=== PATIENT | male | born 1935 | race Caucasian/White ===

== ENCOUNTER 2020-08-25 02:37 | Inpatient (IN) | payer MEDICARE ==
[2020-08-25 05:01] LABS: #Basophils 0.1 thou/uL (0.0-0.2); #Eosinphils 0.1 thou/uL (0.0-0.7); #Lymphocytes 1.3 thou/uL (1.20-3.40); #Neutrophils 9.5 thou/uL (1.40-6.50); %Basophils 0.6 % (0.0-1.0); %Lymphocytes 10.6 % (21.0-51.0); %Monocytes 8.7 % (0.0-10.0); %Neutrophils 79.2 % (42.0-75.0); Hemoglobin 11.8 g/dL (14.0-18.0); Mean Corpuscular HGB CONC 32.6 g/dL (32.0-36.0); Mean Corpuscular Hemoglobin 30.5 pg (27.0-31.0); Mean Corpuscular Volume 93.7 fL (78.0-98.0); Mean Platelet Volume 7.5 fL (7.4-10.4); Platelet Count 280 thou/uL (130-400); RBC Distribution Width 13.2 % (11.5-14.5); Red Blood Cell (RBC) Count 3.86 mill/uL (4.70-6.10)
[2020-08-25 05:15] LABS: INR-International Normal Ratio 1.1; Prothrombin Time 14.3 sec (12.0-14.7)
[2020-08-25 05:16] LABS: PTT 31.3 sec (22.9-36.1)
[2020-08-25 05:22] LABS: ALT (SGPT) 16 U/L (8-55); AST (SGOT) 11 U/L (5-34); Albumin 3.4 g/dL (3.4-4.8); Alkaline Phosphatase 86 U/L (40-110); Anion Gap 12 mmol/L (10-20); BUN (Urea Nitrogen) 23 mg/dL (8.4-25.7); Bilirubin, Total 0.6 mg/dL (0.2-1.2); Calc. Creatinine Clearance 0 mL/min (70-130); Calcium 8.3 mg/dL (7.8-10.44); Carbon Dioxide 27 mmol/L (23-31); Chloride 104 mmol/L (98-107); Globulin 2.7 g/dL (2.4-3.5); Glucose 282 mg/dL (83-110); Magnesium 1.8 mg/dL (1.6-2.6); Phosphorus 3.2 mg/dL (2.3-4.7); Potassium 3.8 mmol/L (3.5-5.1); Protein, Total 6.1 g/dL (5.8-8.1); Sodium 139 mmol/L (136-145)
[2020-08-25] MEDS ORDERED: Dextrose 5% in Water 1,000 ML IV PRN (05:23)
[2020-08-25] MEDS ORDERED: Dextrose 50% Abboject 50 ML SYRINGE SLOW IVP PRN (05:23)
[2020-08-25] MEDS ORDERED: Ondansetron PF 4 MG/2 ML Vial IVP PRN (05:23)
[2020-08-25] MEDS ORDERED: hydrALAZINE 20 MG/ML VIAL SLOW IVP PRN (05:23)
[2020-08-25] MEDS ORDERED: Morphine 4 MG/ML VIAL SLOW IVP PRN (05:23)
[2020-08-25] MEDS ORDERED: Insulin Regular 300 UNITS/3 ML VIAL SC PRN (05:23)
[2020-08-25] MEDS ORDERED: Cyclobenzaprine 10 MG TAB PO PRN (05:26)
[2020-08-25] MEDS ORDERED: traMADol HCl 50 MG TAB PO PRN ×2 (05:26)
[2020-08-25 05:53] VITALS: BMI 28.1
[2020-08-25] MEDS: Ibuprofen 200 MG TAB PO SCH ×3 (06:29→23:52)
[2020-08-25] MEDS: Acetaminophen 325 MG TAB PO SCH ×4 (06:29→23:52)
--- NOTE | 2020-08-25 06:44 | HP ---
TRAUMA SURGEON: Dr. Mckeon. CONSULTING PHYSICIAN: Dr. Cifuentes. HISTORY OF PRESENT ILLNESS: The patient is an 84-year-old male, who presented to the emergency department in [place] after a mechanical fall where he got caught up in his slipper, subsequently falling. The emergency room physician evaluated the patient and found a right open ankle fracture. Dr. Cifuentes was consulted, who recommended operative intervention. The patient denies hitting his head or anticoagulation use. He takes aspirin 81 mg at home. He lives at home alone and he has caretakers, who help take care of him. He denies nausea, vomiting, chest pain, shortness of breath, or syncope. REVIEW OF SYSTEMS: All additional 10-point review of systems negative except as indicated above. PAST MEDICAL HISTORY: Type 2 diabetes, hypertension, atrial fibrillation, dementia, hyperlipidemia. PAST SURGICAL HISTORY: He had a wound debridement of his left foot ulcer by Dr. Winn several years ago. SOCIAL HISTORY: The patient denies tobacco, drug, and alcohol use. He lives at home alone and have caretakers, who help take care of him daily. He uses a walker to get around. MEDICATIONS: Aspirin. The patient also takes Lasix, but he does not know the rest of his medications. He gets his medications from [facility]. ALLERGIES: CEDAR. PHYSICAL EXAMINATION: VITAL SIGNS: Temperature 98.1, pulse 78, respirations 16, oxygen saturation 98% on room air, blood pressure 160/71. GENERAL: Well-appearing elderly male, sitting up in bed, awake and alert, with no signs of acute distress. PULMONARY: Equal chest rise and fall. Clear breath sounds bilaterally. No signs of acute respiratory distress. CARDIAC: Regular rate, irregular rhythm, with no murmurs, gallops, or rubs. GASTROINTESTINAL: Soft, nontender, nondistended. PELVIS: Stable to palpation. Nontender. EXTREMITIES: 2+ pulses in all extremities. Gross motor is intact. The patient with decreased sensation in bilateral feet from diabetes. This is his baseline. He has an ulcer to the heel of the left foot. His right lower extremity is with a splint that is in place. There is a little bit of oozing on the posterior aspect of the splint. NEUROLOGIC: GCS is 15. Pupils equal, round, and reactive to light bilaterally. LABORATORY FINDINGS: White count 12.0, hemoglobin 11.8, hematocrit 36.2, platelets 280. INR 1.1, PTT 31.3. Sodium 139, potassium 3.8, chloride 104, bicarb 27, BUN 23, creatinine 1.21, glucose 282, phosphorus 3.2, magnesium 1.8, total bilirubin 0.6, AST 18, ALT 16, alkaline phosphatase 86. DIAGNOSTIC FINDINGS: Chest x-ray is pending. Official report of the x-ray of the right ankle is pending, however, on my evaluation, the patient has a right distal tib-fib fracture. ASSESSMENT: 1. Status post mechanical fall from standing. 2. Right open ankle fracture. 3. History of diabetes, hypertension, atrial fibrillation, dementia, and hyperlipidemia. PLAN: The patient will be admitted to the Trauma Service. Dr. Cifuentes has been consulted, who evaluated the patient and took him to the OR, at the outside hospital, received tetanus and antibiotics. We will complete a chest x-ray and the EKG and follow that up later this morning for preoperative evaluation, and we will restart his home medications as clinically indicated. Postoperatively, the patient worked with Physical and Occupational Therapy and likely need placement in acute rehab facility. This patient was discussed with Dr. Mckeon before this dictation. Job ID: [id number] [facility]
--- NOTE | 2020-08-25 07:37 | RAD ---
Portable frontal chest radiograph: 08/25/2020 COMPARISON: 05/03/2013 HISTORY: Preoperative evaluation FINDINGS: No pneumothorax or pleural fluid. No focal consolidation or alveolar edema. Mild increased linear density in the perihilar regions. Pression: No focal consolidation or alveolar edema.
[2020-08-25] MEDS: Famotidine/PF 20 mg/2ml Vial SLOW IVP SCH ×2 (08:18→21:20)
[2020-08-25] MEDS: Gabapentin 100 MG CAP PO SCH ×3 (08:55→22:21)
[2020-08-25] MEDS: Polyethylene Glycol 3350 17 GM Packet PO SCH (08:56)
[2020-08-25] MEDS: Senokot S 8.6-50 MG TAB PO SCH ×2 (08:56→22:21)
[2020-08-25] MEDS ORDERED: FLU VACC QS2020-21(65YR UP)/PF 240 MCG/0.7 ML SYRINGE IM ONE (09:00)
--- NOTE | 2020-08-25 09:06 | CON ---
DATE OF CONSULTATION: 08/25/2020 CHIEF COMPLAINT: Right ankle pain. HISTORY OF PRESENT ILLNESS: Mr. Browning is an 84-year-old male, who fell yesterday. He tripped over a slipper falling in his bathroom. He fractured his ankle. He has a laceration of the ankle as well. He has been seen initially at [facility] and then transferred for further care. The patient was admitted last night. He denied loss of consciousness. He normally does use a cane for mobility, sometimes a walker. PAST MEDICAL HISTORY: Diabetes, hypertension, atrial fibrillation, dementia, and hyperlipidemia. PAST SURGICAL HISTORY: Previous left foot ulcer debridement. Otherwise negative. SOCIAL HISTORY: The patient denies tobacco, alcohol, or drug use. The patient reports he has caretakers and family who help him at home. ALLERGIES: TO CEDAR. IMAGES: X-rays of the ankle demonstrate osteoporotic-looking bone. There is a comminuted fracture of the fibula as well as a displaced medial malleolar fracture. The ankle is subluxated laterally. LABORATORY DATA: Hemoglobin is 11.8, hematocrit is 36.2. Coagulation studies are within normal limits as well as electrolytes. His glucose is elevated at 282. PHYSICAL EXAMINATION: VITAL SIGNS: Temperature is 98.1, pulse is 78, respiratory rate of 16, oxygen saturation is 98%, blood pressure is 160/71. GENERAL: He is alert and oriented, lying supine, in no apparent distress. Talkative. HEENT: Normocephalic and atraumatic. RESPIRATORY: Breathing comfortably. ABDOMEN: Soft, nontender, and nondistended. MUSCULOSKELETAL: The patient's right lower extremity has a splint. He is able to flex and extend the toes. He has poor sensation in the toes secondary to neuropathy. His foot is warm and well perfused. There is some serosanguineous drainage on the bandage. The patient has a 4 to 5 cm laceration of the medial ankle. IMPRESSION: Right open bimalleolar ankle fracture in an elderly male. PLAN: At this point, I think the patient is going to need to go to the operating room. We will need to irrigate and debride his open fracture and wounds with wound closure. I am worried about performing an open reduction and internal fixation procedure given his skin damage and diabetes. I think he will be better off with a percutaneous Steinmann pin stabilizing the ankle and allowing healing in that manner. We will proceed likely with this plan today unless the skin looks very good at the time of surgery. He will need 6 weeks at least with nonweightbearing. We will proceed with surgical intervention. He is aware of risk and wants to proceed. Risks do include infection, wound complication, nerve or vascular injury, nonunion, and others. Job ID: [id number]
[2020-08-25] MEDS ORDERED: PHENYLEPHRINE-NS 100 MCG/ML 10 ML SYRINGE ONE (09:47)
[2020-08-25] MEDS ORDERED: PROPOFOL 200 MG/20 ML VIAL ONE (09:47)
[2020-08-25] MEDS ORDERED: Lidocaine 1% PF 5 ML VIAL ONE (09:47)
[2020-08-25] MEDS ORDERED: Ondansetron PF 4 MG/2 ML Vial ONE (09:47)
[2020-08-25] MEDS ORDERED: Dexamethasone 20 MG/5 ML VIAL ONE (09:47)
[2020-08-25] MEDS: ceFAZolin 1 GM/D5W 1 GM in Premix Bag 1 BAG IVPB SCH ×2 (09:55→17:46)
[2020-08-25] MEDS: Insulin Regular 300 UNITS/3 ML VIAL SC PRN ×2 (11:08→16:51)
[2020-08-25 12:50] LABS: SARS-CoV-2 PCR by NAA Not Detected (NotDetected)
--- NOTE | 2020-08-25 13:13 | PDOC.GSPN ---
Surgery Progress Note: Subj - Subjective Patient reports: pain well controlled Narrative: Pt is a 84 yoM admitted this morning 08/25/20 for a mechanical fall at home that resulted in a right open ankle fracture and scheduled for OR today. Pt has 18 hours of home care. Pt reports no pain and has no complaints. Surgery Progress Note: Obj - Vital signs Vital signs: Vital Signs - Most Recent Temp Pulse Resp BP Pulse Ox 98.4 F 94 14 150/68 H 89 L 08/25/20 11:40 08/25/20 11:40 08/25/20 11:40 08/25/20 11:40 08/25/20 11:40 - Physical Exam General: no distress, well developed, well nourished, no pain Cardiovascular: regular rate and rhythm, no murmur Respiratory: clear to auscultation, normal expansion, normal respiratory effort, breath sounds present Abdomen: soft, non tender, nondistended, positive bowel sounds Additional exam: GCS=15 Surgery Progress Note: Results - Labs Result Diagrams: 08/26/20 05:40 08/26/20 05:40 Lab results: Laboratory Results - last 12 hr 08/25/20 08/25/20 08/25/20 04:53 04:53 04:53 WBC 12.0 H RBC 3.86 L Hgb 11.8 L Hct 36.2 L MCV 93.7 MCH 30.5 MCHC 32.6 RDW 13.2 Plt Count 280 MPV 7.5 Neutrophils % 79.2 H Lymphocytes % 10.6 L Monocytes % 8.7 Eosinophils % 1.0 Basophils % 0.6 Neutrophils # 9.5 H Lymphocytes # 1.3 Monocytes # 1.0 H Eosinophils # 0.1 Basophils # 0.1 PT 14.3 INR 1.1 APTT 31.3 Sodium 139 Potassium 3.8 Chloride 104 Carbon Dioxide 27 Anion Gap 12 BUN 23 Creatinine 1.21 Estimated GFR (MDRD) 57 Glucose 282 H POC Glucose Calcium 8.3 Phosphorus 3.2 Magnesium 1.8 Total Bilirubin 0.6 AST 11 ALT 16 Alkaline Phosphatase 86 Serum Total Protein 6.1 Albumin 3.4 Globulin 2.7 Albumin/Globulin Ratio 1.3 SARS CoV-2 Rapid Source SARS-CoV-2 RNA (VANESSA) 08/25/20 08/25/20 06:15 10:36 WBC RBC Hgb Hct MCV MCH MCHC RDW Plt Count MPV Neutrophils % Lymphocytes % Monocytes % Eosinophils % Basophils % Neutrophils # Lymphocytes # Monocytes # Eosinophils # Basophils # PT INR APTT Sodium Potassium Chloride Carbon Dioxide Anion Gap BUN Creatinine Estimated GFR (MDRD) Glucose POC Glucose 250 H Calcium Phosphorus Magnesium Total Bilirubin AST ALT Alkaline Phosphatase Serum Total Protein Albumin Globulin Albumin/Globulin Ratio SARS CoV-2 Rapid Source Nasopharyngeal Swab SARS-CoV-2 RNA (VANESSA) Not Detected - EKG Data Rate: normal Surgery Progress Note: A/P - Plan Plan: ASSESSMENT: Pt is an 84 yoM admitted this morning 08/25/20 for mechanical fall that resulted in a open right ankle fracture, scheduled for surgery today. 1. Right open ankle fracture 2. status post mechanical fall 3. unstable chronic ankle ulcer PLAN: Surgery today for open right ankle fracture. Continue bowel regiment. Continue Pain management. Plan PT/OT after surgery. Continue current medical management. Consult wound management for chronic ankle ulcer. Addendum - Attending - Attending Attestation Date/Time: 08/26/20 4021 I personally evaluated the patient and discussed the management with Dr. [] I agree with the History, Examination, Assessment and Plan documented above with any addition or exceptions noted below.
[2020-08-25] MEDS ORDERED: CEFAZOLIN 1 GM VIAL SLOW IVP SCH (14:00)
[2020-08-25] MEDS ORDERED: Fentanyl 100 MCG/2 ML VIAL ONE (14:03)
--- NOTE | 2020-08-25 18:38 | OP ---
DATE OF PROCEDURE: 08/25/2020 PROCEDURE PERFORMED: Right ankle fracture irrigation and debridement for open wound and percutaneous pin fixation of right ankle fracture. PREOPERATIVE DIAGNOSIS: Open right trimalleolar ankle fracture. POSTOPERATIVE DIAGNOSIS: Open right trimalleolar ankle fracture. COMPLICATIONS: None. ESTIMATED BLOOD LOSS: Minimal. FIST WASHER ENGINEER: Dennis Haro PA-C. IMPLANTS: A single large Steinmann pin was utilized. INDICATIONS: Mr. Browning is an 84-year-old male, who has fallen at home. He fractured his right ankle. He has been indicated for irrigation of his wounds with wound closure. He has also been indicated for percutaneous Steinmann pin fixation of the ankle. His ankle is not amenable to fixation given his poor skin, diabetes, and risk of infection. He is aware of the risks and wants to proceed. DESCRIPTION OF PROCEDURE: Mr. Browning was identified in the preoperative holding area. His correct extremity was marked. He was carried to the operating room. He was positioned supine. General anesthesia was induced. A multidisciplinary time-out was performed. The right lower extremity was prepped and draped in sterile fashion. We began the procedure with extending the patient's traumatic medial wound. He had a 4-cm laceration, which went down to the bony level. We thoroughly irrigated with copious lavage. We debrided the deep tissues sharply. We exposed the underlying bone. We then thoroughly irrigated with copious lavage. A total of 3 L was utilized with a pulse lavage system. At this point, we debrided the skin edges. We then closed the skin with 3-0 nylon suture in interrupted fashion. Next, we used intraoperative x-ray to assess the fracture. We pulled traction and reduced the ankle fracture anatomically. We then made a small incision at the heel. Next, we inserted a Steinmann pin under intraoperative fluoroscopic guidance. This was seated through the talus into the distal tibia. Again, we checked x-rays confirmed we had reduction and stabilize the ankle. At this point, we cut the Steinmann pin and impacted this slightly further. Next, we thoroughly irrigated all wounds and closed the small heel wound. We applied a sterile dressing and a splint. The patient was taken to the recovery room in good condition. Job ID: [id number]
--- NOTE | 2020-08-25 21:32 | RAD ---
RADIOGRAPH RIGHT ANKLE TWO VIEWS: Date: 08-25-2020 Time: 3:13 p.m. History: 84-year-old male with acute, traumatic, right ankle fracture. Comparison: 08-25-2020 at 2:11 a.m. FINDINGS: Small field of view fluoroscopic spot images obtained with c-arm in the OR. The subluxation and asymmetry of the ankle mortise has been reduced, and alignment is now nearly tiffanie omical. This has been fixated with a long-vertical metallic screw from the plantar aspect of the ante rior calcaneus, through the talus, through the tibial profund, into the junction between the proximal and middle thirds of the tibial diaphysis. The medial malleolar fracture has been reduced and is yari rly anatomical. The comminuted and displaced distal fibular metadiaphyseal fracture has also been red uced, with improved alignment. IMPRESSION: 1. Immediately status post arthrodesis of the ankle with a single long screw. 2. Interval improvement of alignment of the comminuted fractures of the distal fibula and medial malleus. POS: JIN
[2020-08-25] MEDS ORDERED: CEFAZOLIN 2 GM in Premix Bag 1 BAG IVPB SCH (22:00)
[2020-08-26] MEDS: Acetaminophen 325 MG TAB PO SCH ×4 (00:31→17:08)
[2020-08-26] MEDS: ceFAZolin 1 GM/D5W 1 GM in Premix Bag 1 BAG IVPB SCH ×2 (02:51→09:04)
[2020-08-26] MEDS: Insulin Regular 300 UNITS/3 ML VIAL SC PRN (05:31)
[2020-08-26] MEDS: Ibuprofen 200 MG TAB PO SCH (05:31)
[2020-08-26 06:02] LABS: #Lymphocytes 1.4 thou/uL (1.20-3.40); #Monocytes 1.3 thou/uL (0.11-0.59); #Neutrophils 9.4 thou/uL (1.40-6.50); %Basophils 0.1 % (0.0-1.0); %Eosinophils 0.3 % (0.0-10.0); %Lymphocytes 11.6 % (21.0-51.0); %Monocytes 10.7 % (0.0-10.0); %Neutrophils 77.4 % (42.0-75.0); Hemoglobin 10.8 g/dL (14.0-18.0); Mean Corpuscular HGB CONC 32.2 g/dL (32.0-36.0); Mean Corpuscular Hemoglobin 30.8 pg (27.0-31.0); Mean Corpuscular Volume 95.7 fL (78.0-98.0); Mean Platelet Volume 7.7 fL (7.4-10.4); Platelet Count 256 thou/uL (130-400); RBC Distribution Width 13.1 % (11.5-14.5); Red Blood Cell (RBC) Count 3.52 mill/uL (4.70-6.10); White Blood Cell (WBC) Count 12.1 thou/uL (4.8-10.8)
[2020-08-26 06:30] LABS: Anion Gap 12 mmol/L (10-20); BUN (Urea Nitrogen) 26 mg/dL (8.4-25.7); Calc. Creatinine Clearance 59 mL/min (70-130); Calcium 8.2 mg/dL (7.8-10.44); Carbon Dioxide 28 mmol/L (23-31); Chloride 103 mmol/L (98-107); Glucose 312 mg/dL (83-110); Magnesium 1.9 mg/dL (1.6-2.6); Phosphorus 2.8 mg/dL (2.3-4.7); Potassium 4.2 mmol/L (3.5-5.1); Sodium 139 mmol/L (136-145)
[2020-08-26] MEDS ORDERED: INSULIN ASPART 100 UNIT/ML SC SCH (08:00)
[2020-08-26] MEDS: Senokot S 8.6-50 MG TAB PO SCH ×2 (08:57→21:06)
[2020-08-26] MEDS: Gabapentin 100 MG CAP PO SCH ×3 (08:57→20:32)
[2020-08-26] MEDS: hydrALAZINE 25 MG TAB PO SCH ×2 (08:58→20:34)
[2020-08-26] MEDS: Polyethylene Glycol 3350 17 GM Packet PO SCH (09:01)
[2020-08-26] MEDS: Enoxaparin Sodium 30 MG/0.3 ML SYRINGE SC SCH ×2 (09:05→20:33)
[2020-08-26] MEDS: Propafenone HCl 150 MG TAB PO SCH ×3 (09:18→20:32)
[2020-08-26] MEDS ORDERED: HumaLOG 300 UNITS/3 ML VIAL SC PRN (12:00)
[2020-08-26] MEDS: HumaLOG 300 UNITS/3 ML VIAL SC SCH ×2 (12:04→17:08)
[2020-08-26] MEDS: HumaLOG 300 UNITS/3 ML VIAL SC PRN ×2 (12:05→17:09)
--- NOTE | 2020-08-26 15:21 | PDOC.GSPN ---
Surgery Progress Note: Subj - Subjective Patient reports: no new complaints, feels better, pain well controlled, no bowel movement, tolerating a regular diet Narrative: Pt is an 84 yoM admitted on 08/25/20 for mechanical fall that resulted in an open right ankle fracture. Pt is post op day 1 of right ankle fracture repair. Pt reports he has no pain and has had a good appetite. Pt reports no bowel movement. Pt has no complaints. Awaiting approval to [facility]. Surgery Progress Note: Obj - Vital signs Vital signs: Vital Signs - Most Recent Temp Pulse Resp BP Pulse Ox 97.6 F 78 17 117/62 94 L 08/26/20 11:27 08/26/20 11:27 08/26/20 11:27 08/26/20 11:27 08/26/20 11:27 - Physical Exam General: no distress, well developed, well nourished Cardiovascular: regular rate and rhythm, no murmur Respiratory: clear to auscultation, normal expansion, normal respiratory effort, breath sounds present Abdomen: soft, non tender, nondistended, positive bowel sounds Additional exam: GCS=15 Surgery Progress Note: Results - Labs Result Diagrams: 08/27/20 06:13 08/27/20 06:13 Lab results: Laboratory Results - last 12 hr 08/26/20 08/26/20 08/26/20 05:23 05:40 05:40 WBC 12.1 H RBC 3.52 L Hgb 10.8 L Hct 33.7 L MCV 95.7 MCH 30.8 MCHC 32.2 RDW 13.1 Plt Count 256 MPV 7.7 Neutrophils % 77.4 H Lymphocytes % 11.6 L Monocytes % 10.7 H Eosinophils % 0.3 Basophils % 0.1 Neutrophils # 9.4 H Lymphocytes # 1.4 Monocytes # 1.3 H Eosinophils # 0.0 Basophils # 0.0 Sodium 139 Potassium 4.2 Chloride 103 Carbon Dioxide 28 Anion Gap 12 BUN 26 H Creatinine 1.35 H Estimated GFR (MDRD) 50 Glucose 312 H POC Glucose 280 H Calcium 8.2 Phosphorus 2.8 Magnesium 1.9 08/26/20 08/26/20 07:27 10:54 WBC RBC Hgb Hct MCV MCH MCHC RDW Plt Count MPV Neutrophils % Lymphocytes % Monocytes % Eosinophils % Basophils % Neutrophils # Lymphocytes # Monocytes # Eosinophils # Basophils # Sodium Potassium Chloride Carbon Dioxide Anion Gap BUN Creatinine Estimated GFR (MDRD) Glucose POC Glucose 235 H 267 H Calcium Phosphorus Magnesium - EKG Data Rate: normal Surgery Progress Note: A/P - Plan Plan: ASSESSMENT: Pt is an 84 yoM admitted on 08/25/20 for mechanical fall. Pt is post op day 1 of right ankle fracture repair. 1. post op day 1 right ankle fracture repair 2. post mechanical fall 3. chronic ankle ulcer PLAN: Continue pain regiment. Continue bowel regiment. Encouraged pt to use incentive spirometer. Continue PT/OT. Continue current medical management. Awaiting [facility] approval. Addendum - Attending - Attending Attestation Date/Time: 08/27/20 8269 I personally evaluated the patient and discussed the management with Dr. [] I agree with the History, Examination, Assessment and Plan documented above with any addition or exceptions noted below.
[2020-08-26] MEDS: Simvastatin 10 MG TAB PO SCH (20:32)
[2020-08-26] MEDS: Insulin Glargine 10 UNITS in Pre-Filled Syringe 1 EACH SC SCH (20:33)
[2020-08-26] MEDS ORDERED: INSULIN DETEMIR SC SCH (21:00)
[2020-08-27] MEDS: Acetaminophen 325 MG TAB PO SCH ×4 (00:35→16:30)
[2020-08-27] MEDS: HumaLOG 300 UNITS/3 ML VIAL SC PRN ×2 (05:55→11:54)
[2020-08-27 06:32] LABS: Hemoglobin 10.4 g/dL (14.0-18.0); Mean Corpuscular HGB CONC 32.5 g/dL (32.0-36.0); Mean Corpuscular Hemoglobin 31.2 pg (27.0-31.0); Mean Corpuscular Volume 96.2 fL (78.0-98.0); Mean Platelet Volume 7.6 fL (7.4-10.4); Platelet Count 279 thou/uL (130-400); RBC Distribution Width 13.2 % (11.5-14.5); Red Blood Cell (RBC) Count 3.34 mill/uL (4.70-6.10); White Blood Cell (WBC) Count 10.3 thou/uL (4.8-10.8)
[2020-08-27 06:53] LABS: Anion Gap 11 mmol/L (10-20); BUN (Urea Nitrogen) 27 mg/dL (8.4-25.7); Calc. Creatinine Clearance 71 mL/min (70-130); Carbon Dioxide 27 mmol/L (23-31); Chloride 102 mmol/L (98-107); Glucose 254 mg/dL (83-110); Magnesium 1.9 mg/dL (1.6-2.6); Phosphorus 2.4 mg/dL (2.3-4.7); Potassium 4.1 mmol/L (3.5-5.1); Sodium 136 mmol/L (136-145)
[2020-08-27] MEDS ORDERED: Magnesium 2 GM/50 ML 2 GM in Premix Bag 1 BAG IVPB SCH (07:30)
[2020-08-27] MEDS ORDERED: Potassium Chloride 10 MEQ TAB PO SCH (09:30)
[2020-08-27] MEDS: Propafenone HCl 150 MG TAB PO SCH ×3 (10:18→20:36)
[2020-08-27] MEDS: Polyethylene Glycol 3350 17 GM Packet PO SCH (10:19)
[2020-08-27] MEDS: Senokot S 8.6-50 MG TAB PO SCH ×2 (10:19→20:36)
[2020-08-27] MEDS: Enoxaparin Sodium 30 MG/0.3 ML SYRINGE SC SCH ×2 (10:20→20:36)
[2020-08-27] MEDS: hydrALAZINE 25 MG TAB PO SCH ×2 (10:20→20:36)
[2020-08-27] MEDS: Gabapentin 100 MG CAP PO SCH ×3 (10:20→20:37)
[2020-08-27] MEDS: HumaLOG 300 UNITS/3 ML VIAL SC SCH ×3 (10:21→17:26)
[2020-08-27] MEDS: Insulin Glargine 10 UNITS in Pre-Filled Syringe 1 EACH SC SCH ×2 (10:22→20:35)
--- NOTE | 2020-08-27 13:13 | PDOC.GSPN ---
Surgery Progress Note: Subj - Subjective Patient reports: no new complaints, feels better, pain well controlled, tolerati ng a regular diet Narrative: Pt is an 84 yoM admitted on 08/25/20 for a mechanical fall. Post op day 2 from a right ankle fracture repair. Pt feels well, has no pain and has no complaints. Pt was accepted to [facility] pending bed availability. Surgery Progress Note: Obj - Vital signs Vital signs: Vital Signs - Most Recent Temp Pulse Resp BP Pulse Ox 98.8 F 90 18 144/65 H 92 L 08/27/20 11:12 08/27/20 11:12 08/27/20 11:12 08/27/20 11:12 08/27/20 11:12 - Physical Exam General: no distress, well developed, well nourished Cardiovascular: regular rate and rhythm, no murmur Respiratory: clear to auscultation, normal expansion, normal respiratory effort, breath sounds present Abdomen: soft, non tender, nondistended, positive bowel sounds Psychiatric: memory intact, oriented to time, oriented to person, oriented to place, speech is normal Additional exam: GCS=15 Surgery Progress Note: Results - Labs Result Diagrams: 08/27/20 06:13 08/27/20 06:13 Lab results: Laboratory Results - last 12 hr 08/26/20 08/27/20 08/27/20 20:31 06:13 06:13 WBC 10.3 RBC 3.34 L Hgb 10.4 L Hct 32.1 L MCV 96.2 MCH 31.2 H MCHC 32.5 RDW 13.2 Plt Count 279 MPV 7.6 Sodium 136 Potassium 4.1 Chloride 102 Carbon Dioxide 27 Anion Gap 11 BUN 27 H Creatinine 1.12 Estimated GFR (MDRD) 62 Glucose 254 H POC Glucose 236 H Calcium 8.0 Phosphorus 2.4 Magnesium 1.9 08/27/20 11:06 WBC RBC Hgb Hct MCV MCH MCHC RDW Plt Count MPV Sodium Potassium Chloride Carbon Dioxide Anion Gap BUN Creatinine Estimated GFR (MDRD) Glucose POC Glucose 304 H Calcium Phosphorus Magnesium - EKG Data Rate: normal Surgery Progress Note: A/P - Plan Plan: ASSESSMENT: Pt is an 84 yoM admitted on 08/25/20 for a mechanical fall. Post op day 2 from a right ankle fracture repair. 1. post op day 2 right ankle fracture repair 2. post mechanical fall 3. DM-hyperglycemia, uncontrolled 4. chronic ankle ulcer PLAN: Increase basal insulin to 10 units BID. Start home medication 10 mEq KCl. Continue pain management. Continue Bowel regiment. Continue PT/OT. Continue current medical management. Encourage Incentive Spirometer use. Pt approved to [facility], waiting on bed availability. Addendum - Attending - Attending Attestation Date/Time: 08/27/20 0804 I personally evaluated the patient and discussed the management with Dr. [] I agree with the History, Examination, Assessment and Plan documented above with any addition or exceptions noted below.
[2020-08-27] MEDS: Simvastatin 10 MG TAB PO SCH (20:36)
[2020-08-28] MEDS: Acetaminophen 325 MG TAB PO SCH ×4 (00:12→17:35)
--- NOTE | 2020-08-28 04:16 | PDOC.GSPN ---
Surgery Progress Note: Subj - Subjective Patient reports: no new complaints, feels better, positive flatus, pain well con trolled, tolerating a regular diet Narrative: Pt is an 84 yoM admitted on 08/25/20 for a mechanical fall. Post op day 3 from a right ankle fracture repair. Pt reports no pain. Pt reports he has a good appetite and has slept well. Pt reports no bowel movements but does report he feels the sensation to have a bowel movement. Pt accepted to [facility] pending bed availability tomorrow. Surgery Progress Note: Obj - Vital signs Vital signs: Vital Signs - Most Recent Temp Pulse Resp BP Pulse Ox 98.2 F 87 18 151/68 H 93 L 08/28/20 03:10 08/28/20 03:10 08/28/20 03:10 08/28/20 03:10 08/28/20 03:10 - Physical Exam General: no distress, well developed, well nourished Cardiovascular: regular rate and rhythm, no murmur Respiratory: clear to auscultation, normal expansion, normal respiratory effort, breath sounds present Abdomen: soft, non tender, nondistended, positive bowel sounds Psychiatric: memory intact, oriented to time, oriented to person, oriented to place, speech is normal Additional exam: GCS=15 Surgery Progress Note: Results - Labs Result Diagrams: 08/27/20 06:13 08/27/20 06:13 Lab results: Laboratory Results - last 12 hr 08/27/20 08/27/20 16:29 20:33 POC Glucose 125 H 136 H - EKG Data Rate: normal Surgery Progress Note: A/P - Plan Plan: ASSESSMENT: Pt is an 84 yoM admitted on 08/25/20 for a mechanical fall. Post op day 3 for a right ankle fracture repair 1. post op day 3 for a right ankle fracture repair 2. post mechanical fall 3. chronic ankle ulcer 4. HTN, uncontrolled PLAN: Start lisinopril 5 mg to better manage the pt HTN. Continue pain management. Continue PT/OT. Encourage Incentive spirometer use. Continue current medical management. Pt approved to [facility] pending bed availability. Addendum - Attending - Attending Attestation Date/Time: 08/29/20 1050 I personally evaluated the patient and discussed the management with . [] I agree with the History, Examination, Assessment and Plan documented above with any addition or exceptions noted below.
[2020-08-28] MEDS: HumaLOG 300 UNITS/3 ML VIAL SC PRN ×2 (05:14→16:22)
[2020-08-28] MEDS: Enoxaparin Sodium 30 MG/0.3 ML SYRINGE SC SCH ×2 (08:39→20:54)
[2020-08-28] MEDS: Gabapentin 100 MG CAP PO SCH ×3 (08:40→20:54)
[2020-08-28] MEDS: Polyethylene Glycol 3350 17 GM Packet PO SCH (08:40)
[2020-08-28] MEDS: Senokot S 8.6-50 MG TAB PO SCH ×2 (08:40→20:55)
[2020-08-28] MEDS: Propafenone HCl 150 MG TAB PO SCH ×3 (08:41→20:54)
[2020-08-28] MEDS: hydrALAZINE 25 MG TAB PO SCH ×2 (08:41→20:54)
[2020-08-28] MEDS: Insulin Glargine 10 UNITS in Pre-Filled Syringe 1 EACH SC SCH ×2 (08:41→20:53)
[2020-08-28] MEDS: HumaLOG 300 UNITS/3 ML VIAL SC SCH ×3 (08:42→17:36)
[2020-08-28] MEDS ORDERED: Potassium Chloride 10 MEQ TAB PO SCH (09:00)
[2020-08-28] MEDS ORDERED: Furosemide 40 MG TAB PO SCH (09:00)
--- NOTE | 2020-08-28 16:30 | DIS ---
DATE OF ADMISSION: 08/25/2020 DATE OF DISCHARGE: 08/28/2020 DISCHARGE ATTENDING: Dr. Alves. CONSULTS: Orthopedic Surgery, Dr. Cifuentes. PROCEDURES: On 08/25/2020, open reduction and internal fixation and irrigation and debridement of wound, right ankle for a right open ankle fracture. PRIMARY DIAGNOSES: Mechanical fall, right open ankle fracture, hyperglycemia. SECONDARY DIAGNOSES: Type 2 diabetes, hypertension, atrial fibrillation, dementia, and hyperlipidemia. DISCHARGE MEDICATIONS: 1. Acetaminophen 650 mg p.o. q.6 hours. 2. Flexeril 5 mg p.o. three times a day. 3. Lovenox 30 mg subcu b.i.d. for 2 weeks, VTE prophylaxis. 4. Lasix 40 mg p.o. q.a.m. 5. Gabapentin 100 mg p.o. three times a day. 6. Humalog 8 units subcu three times a day with meals. 7. Hydralazine 25 mg p.o. b.i.d. 8. Lisinopril 5 mg p.o. at bedtime. 9. MiraLAX for constipation. 10. Potassium 10 mEq p.o. daily. 11. Propafenone 150 mg p.o. three times a day. 12. Senokot-S two tabs p.o. b.i.d. 13. Zocor 10 mg p.o. at bedtime. 14. Tramadol 50 mg p.o. q.6 hours one to two tabs p.r.n. pain. 15. Lantus 10 units subcu at bedtime. 16. Lantus 10 units subcu q.a.m. 17. Aspirin 81 mg p.o. daily. 18. Combigan eyedrops. 19. Latanoprost eyedrops each eye one drop at bedtime. No discontinued medications. HISTORY OF PRESENT ILLNESS AND HOSPITAL COURSE: This is an 84-year-old male, who presented to the emergency room in [place] after a mechanical fall. He was evaluated and found to have an open right ankle fracture. The patient was sent to [facility] for Orthopedic [facility]. The patient denied hitting his head or losing consciousness. The patient denied being on any anticoagulation. The patient did report taking aspirin 81 mg daily. The patient is from home and has caretakers who take care of him. The patient denied feeling weak, dizzy, short of breath, or chest pain prior to tripping and falling. The patient's pain was controlled pre and postop. The patient did have some elevated blood sugars and adjustments were made to insulin. The patient was placed on a bowel regimen. The patient also had some hypertension, and lisinopril was added to his blood pressure regimen. The patient tolerated a diabetic diet and supplements with Glucerna and Reddy. On the day of discharge, the patient was examined by Dr. Alves. His exam was unremarkable including cardiopulmonary and GI exam. The patient's vital signs were stable and he was deemed stable for discharge to inpatient rehab, [facility] for continued physical and occupational therapy. DISPOSITION: Stable. DISCHARGE INSTRUCTIONS: 1. Location: [facility]. 2. Diet: Diabetic diet, supplement with Reddy b.i.d. and Glucerna three times a day. 3. Activity: Orthopedic limitations, nonweightbearing right lower extremity. 4. Followup: Follow up with primary care physician for diabetes and hypertension. 5. Follow up with Orthopedic Surgery in 14 days. No need to follow up with Trauma Services. 50% of the 30 minutes were spent educating the patient on followup appointments and medications. Job ID: [id number]
[2020-08-28 20:43] VITALS: BP 122/64; TEMP 98.5
[2020-08-28] MEDS: Simvastatin 10 MG TAB PO SCH (20:55)
[2020-08-28] MEDS ORDERED: Lisinopril 5 MG TAB PO SCH (21:00)
== END 2020-08-28 21:15 | DRG 494 ==
LOC: SURG B 02:37 → OBSVTOIN 05:23
PROVIDERS: ADMIT Surgery; ATTEND Surgery
PROC: 0QH Lower Bones, Insertion (ICD-10-PCS; principal; 2020-08-25)
DX: S82.851B Displaced trimalleolar fracture of right lower leg, initial encounter for open fracture type I or II (principal); Z23 Encounter for immunization; Z20.822 Contact with and (suspected) exposure to COVID-19; W01.0XXA Fall on same level from slipping, tripping and stumbling without subsequent striking against object, initial encounter; I10 Essential (primary) hypertension; I48.91 Unspecified atrial fibrillation; F03.90 Unspecified dementia, unspecified severity, without behavioral disturbance, psychotic disturbance, mood disturbance, and anxiety; E11.65 Type 2 diabetes mellitus with hyperglycemia; E78.5 Hyperlipidemia, unspecified; Z91.048 Other nonmedicinal substance allergy status; Z79.82 Long term (current) use of aspirin; Z79.4 Long term (current) use of insulin; Z79.899 Other long term (current) drug therapy; S82.451A Displaced comminuted fracture of shaft of right fibula, initial encounter for closed fracture
CPT/HCPCS: 29515; 36415; 36416; 71045; 76000; 80048; 80053; 83735; 84100; 85025; 85027; 85610; 85730; 87635; 90471; 90715; 90732; 93005; 93010; 96365; C1713; G0009; J0690; J1100; J1650; J1815; J2270; J2405; J2704; J3010; J3475; S0028; U0003; U0005

== ENCOUNTER 2020-08-31 20:48 | Emergency (ER) | payer MEDICARE | END 2020-09-01 00:01 | LOC: ERS 20:48 | DX: R33.9 Retention of urine, unspecified (principal); E11.9 Type 2 diabetes mellitus without complications; E78.5 Hyperlipidemia, unspecified; I10 Essential (primary) hypertension | CPT/HCPCS: 51702 ==

== ENCOUNTER 2020-09-15 12:33 | Emergency (ER) | payer MEDICARE ==
[2020-09-15 14:13] LABS: #Eosinphils 0.1 thou/uL (0.0-0.7); #Lymphocytes 1.8 thou/uL (1.20-3.40); #Monocytes 0.8 thou/uL (0.11-0.59); #Neutrophils 8.7 thou/uL (1.40-6.50); %Basophils 0.2 % (0.0-1.0); %Eosinophils 0.6 % (0.0-10.0); %Lymphocytes 15.5 % (21.0-51.0); %Monocytes 7.1 % (0.0-10.0); %Neutrophils 76.6 % (42.0-75.0); Hemoglobin 11.9 g/dL (14.0-18.0); Mean Corpuscular Hemoglobin 31.5 pg (27.0-31.0); Mean Corpuscular Volume 95.6 fL (78.0-98.0); Mean Platelet Volume 7.1 fL (7.4-10.4); Platelet Count 356 thou/uL (130-400); RBC Distribution Width 13.3 % (11.5-14.5); Red Blood Cell (RBC) Count 3.76 mill/uL (4.70-6.10); White Blood Cell (WBC) Count 11.3 thou/uL (4.8-10.8)
[2020-09-15 14:33] LABS: ALT (SGPT) 15 U/L (8-55); AST (SGOT) 13 U/L (5-34); Albumin 3.4 g/dL (3.4-4.8); Alkaline Phosphatase 120 U/L (40-110); Anion Gap 14 mmol/L (10-20); BUN (Urea Nitrogen) 22 mg/dL (8.4-25.7); Bilirubin, Total 0.8 mg/dL (0.2-1.2); Calc. Creatinine Clearance 0 mL/min (70-130); Calcium 8.3 mg/dL (7.8-10.44); Carbon Dioxide 20 mmol/L (23-31); Chloride 104 mmol/L (98-107); Globulin 3.3 g/dL (2.4-3.5); Glucose 181 mg/dL (83-110); Potassium 4.3 mmol/L (3.5-5.1); Protein, Total 6.7 g/dL (5.8-8.1); Sodium 134 mmol/L (136-145)
[2020-09-15 15:08] LABS: Bacteria/HPF None Seen HPF (None Seen); Bilirubin Negative (Negative); Blood, Urine Trace (Negative); Clarity Turbid (Clear); Glucose, Urine (Dipstick) Normal (Negative); Ketone, Urine Negative (Negative); Leukocyte 25 Leu/uL (Negative); Nitrite Negative (Negative); Protein, Urine (Dipstick) 20 mg/dL (Neg-Trace); Specific Gravity, Urine 1.021 (1.002-1.036); Squamous Epithelial None Seen HPF (0-3); Urobilinogen Normal mg/dL (Less than 2); WBC/HPF 0-3 HPF (0-3)
== END 2020-09-15 15:50 | disposition home or self-care (01) ==
LOC: ERS 12:33
DX: R22.0 Localized swelling, mass and lump, head (principal); E11.9 Type 2 diabetes mellitus without complications; E78.5 Hyperlipidemia, unspecified; I10 Essential (primary) hypertension; F03.90 Unspecified dementia, unspecified severity, without behavioral disturbance, psychotic disturbance, mood disturbance, and anxiety
CPT/HCPCS: 36415; 36416; 80053; 81003; 81015; 83880; 85025; 85652; 86140; 87077; 87086; 87186; 99283

== ENCOUNTER 2020-10-15 15:19 | Outpatient (CLI) | payer MEDICARE ==
[2020-10-15 16:17] LABS: Hemoglobin 12.1 g/dL (13.5-17.5); Mean Corpuscular HGB CONC 31.6 g/dL (32.0-36.0); Mean Corpuscular Hemoglobin 29.6 pg (27.0-33.0); Mean Corpuscular Volume 93.6 fl (81.2-95.1); Mean Platelet Volume 9.8 fl (7.4-10.4); Platelet Count 303 10x3/uL (150-450); RBC Distribution Width 15.1 % (11.5-14.5); Red Blood Cell (RBC) Count 4.09 10x6/uL (4.32-5.72); White Blood Cell (WBC) Count 9.1 10x3/uL (3.5-10.5)
[2020-10-15 16:41] LABS: Anion Gap 14 mmol/L (10-20); BUN (Urea Nitrogen) 21 mg/dL (8.4-25.7); Calc. Creatinine Clearance 0 mL/min (70-130); Calcium 8.7 mg/dL (7.8-10.44); Carbon Dioxide 24 mmol/L (23-31); Chloride 105 mmol/L (98-107); Glucose 195 mg/dL (83-110); Potassium 4.2 mmol/L (3.5-5.1); Sodium 139 mmol/L (136-145)
[2020-10-16 02:31] LABS: SARS-CoV-2 PCR by NAA Not Detected (NotDetected)
== END 2020-10-15 15:20 | disposition home or self-care (01) ==
LOC: LABBT 15:19
PROVIDERS: ATTEND Orthopaedic Surgery
DX: Z01.812 Encounter for preprocedural laboratory examination (principal); T85.848A Pain due to other internal prosthetic devices, implants and grafts, initial encounter
CPT/HCPCS: 80048; 85027; U0003; U0005; 87635

== ENCOUNTER 2020-10-20 10:30 | Day surgery (SDC) | payer MEDICARE ==
[2020-10-20] MEDS ORDERED: Fentanyl 100 MCG/2 ML VIAL ONE (12:17)
[2020-10-20] MEDS ORDERED: PROPOFOL 200 MG/20 ML VIAL ONE (12:41)
[2020-10-20] MEDS ORDERED: Lidocaine 1% PF 5 ML VIAL ONE (12:41)
[2020-10-20] MEDS ORDERED: PHENYLEPHRINE-NS 100 MCG/ML 10 ML SYRINGE ONE (12:41)
== END 2020-10-20 15:00 | disposition home or self-care (01) ==
LOC: SDC 10:30
PROVIDERS: ATTEND Orthopaedic Surgery
PROC: 0SPF04Z Removal of Internal Fixation Device from Right Ankle Joint, Open Approach (ICD-10-PCS; principal; 2020-10-20)
DX: S82.841D Displaced bimalleolar fracture of right lower leg, subsequent encounter for closed fracture with routine healing (principal); E11.51 Type 2 diabetes mellitus with diabetic peripheral angiopathy without gangrene; K59.09 Other constipation; Z79.4 Long term (current) use of insulin; Z79.82 Long term (current) use of aspirin; Z79.899 Other long term (current) drug therapy; X58.XXXD Exposure to other specified factors, subsequent encounter
CPT/HCPCS: 36416; 76000; J0690; J2704; J3010

== ENCOUNTER 2020-10-28 15:52 | Inpatient (IN) | payer MEDICARE, OTHER ==
[2020-10-28 18:03] LABS: #Eosinphils 0.1 thou/uL (0.0-0.7); #Lymphocytes 2.6 thou/uL (1.20-3.40); #Monocytes 1.1 thou/uL (0.11-0.59); #Neutrophils 6.7 thou/uL (1.40-6.50); %Basophils 0.3 % (0.0-1.0); %Eosinophils 1.3 % (0.0-10.0); %Lymphocytes 24.5 % (21.0-51.0); %Monocytes 10.3 % (0.0-10.0); %Neutrophils 63.7 % (42.0-75.0); Mean Corpuscular HGB CONC 31.6 g/dL (32.0-36.0); Mean Corpuscular Volume 94.9 fL (78.0-98.0); Mean Platelet Volume 7.5 fL (7.4-10.4); Platelet Count 290 thou/uL (130-400); White Blood Cell (WBC) Count 10.5 thou/uL (4.8-10.8)
[2020-10-28 18:23] LABS: ALT (SGPT) 11 U/L (8-55); AST (SGOT) 18 U/L (5-34); Albumin 3.3 g/dL (3.4-4.8); Alkaline Phosphatase 117 U/L (40-110); Anion Gap 9 mmol/L (10-20); BUN (Urea Nitrogen) 21 mg/dL (8.4-25.7); Bilirubin, Total 0.6 mg/dL (0.2-1.2); Calc. Creatinine Clearance 0 mL/min (70-130); Calcium 8.8 mg/dL (7.8-10.44); Carbon Dioxide 29 mmol/L (23-31); Chloride 109 mmol/L (98-107); Globulin 3.2 g/dL (2.4-3.5); Glucose 115 mg/dL (83-110); Potassium 4.3 mmol/L (3.5-5.1); Protein, Total 6.5 g/dL (5.8-8.1); Sodium 143 mmol/L (136-145)
[2020-10-28] MEDS ORDERED: Acetaminophen/Codeine 30-300mg Tablet PO PRN ×2 (19:18)
[2020-10-28] MEDS ORDERED: Ondansetron PF 4 MG/2 ML Vial IVP PRN (19:18)
[2020-10-28] MEDS ORDERED: Communication Order-Pharmacy FS SCH (19:30)
[2020-10-28] MEDS ORDERED: Morphine 4 MG/ML VIAL SLOW IVP PRN (20:16)
[2020-10-28] MEDS ORDERED: Pharmacy to Dose - ANTIBIOTICS IVPB PRN (20:28)
[2020-10-28] MEDS ORDERED: Lorazepam 2 MG/ML VIAL SLOW IVP PRN (21:20)
[2020-10-28 21:27] VITALS: BMI 29.8
[2020-10-29 01:21] LABS: SARS-CoV-2 PCR by NAA Not Detected (NotDetected)
[2020-10-29] MEDS: CEFAZOLIN 2 GM in Premix Bag 1 BAG IVPB SCH ×3 (01:32→17:29)
[2020-10-29 05:29] LABS: #Eosinphils 0.2 thou/uL (0.0-0.7); #Lymphocytes 2.2 thou/uL (1.20-3.40); #Monocytes 0.9 thou/uL (0.11-0.59); #Neutrophils 4.5 thou/uL (1.40-6.50); %Basophils 0.4 % (0.0-1.0); %Eosinophils 2.3 % (0.0-10.0); %Lymphocytes 28.6 % (21.0-51.0); %Monocytes 11.3 % (0.0-10.0); %Neutrophils 57.5 % (42.0-75.0); Hemoglobin 11.3 g/dL (14.0-18.0); Mean Corpuscular HGB CONC 30.6 g/dL (32.0-36.0); Mean Corpuscular Hemoglobin 29.2 pg (27.0-31.0); Mean Corpuscular Volume 95.6 fL (78.0-98.0); Mean Platelet Volume 7.6 fL (7.4-10.4); Platelet Count 265 thou/uL (130-400); RBC Distribution Width 14.1 % (11.5-14.5); Red Blood Cell (RBC) Count 3.86 mill/uL (4.70-6.10); White Blood Cell (WBC) Count 7.8 thou/uL (4.8-10.8)
[2020-10-29 05:33] LABS: INR-International Normal Ratio 1.2; Prothrombin Time 15.6 sec (12.0-14.7)
[2020-10-29] MEDS ORDERED: Lantus 1000 UNITS/10 ML VIAL SC SCH (09:00)
[2020-10-29] MEDS: Propafenone HCl 150 MG TAB PO SCH ×3 (09:29→21:09)
[2020-10-29] MEDS: hydrALAZINE 25 MG TAB PO SCH ×2 (09:30→21:10)
[2020-10-29] MEDS: Aspirin Chewable 81 MG TAB PO SCH (09:30)
[2020-10-29] MEDS: Lantus 1000 UNITS/10 ML VIAL SC SCH ×2 (11:07→21:23)
[2020-10-29] MEDS ORDERED: Fentanyl 100 MCG/2 ML VIAL ONE (12:27)
[2020-10-29] MEDS ORDERED: PHENYLEPHRINE-NS 100 MCG/ML 10 ML SYRINGE ONE (13:33)
[2020-10-29] MEDS ORDERED: PROPOFOL 200 MG/20 ML VIAL ONE (13:33)
[2020-10-29] MEDS ORDERED: Glycopyrrolate 0.2 MG/ML 5 ML SYRINGE ONE (13:33)
[2020-10-29] MEDS ORDERED: Ondansetron PF 4 MG/2 ML Vial ONE (13:33)
[2020-10-29] MEDS ORDERED: Lidocaine 1% PF 5 ML VIAL ONE (13:33)
[2020-10-29] MEDS ORDERED: hydrALAZINE 20 MG/ML VIAL SLOW IVP PRN (19:56)
[2020-10-29] MEDS: Tamsulosin HCl 0.4 MG CAP PO SCH (21:09)
[2020-10-29] MEDS: Gabapentin 100 MG CAP PO SCH (21:09)
[2020-10-29] MEDS: Senokot S 8.6-50 MG TAB PO SCH (21:10)
[2020-10-29] MEDS: Brimonidine Tartrate 0.2% Ophth Soln 5 ml Bottle EA EYE SCH (21:12)
[2020-10-29] MEDS: Latanoprost 0.005% Ophth Soln 2.5 ml Bottle EA EYE SCH (21:13)
[2020-10-29] MEDS: Timolol 0.5% Ophth Soln 5 ml Bottle EA EYE SCH (21:15)
[2020-10-29] MEDS: Simvastatin 10 MG TAB PO SCH (21:36)
[2020-10-30] MEDS: CEFAZOLIN 2 GM in Premix Bag 1 BAG IVPB SCH ×3 (03:14→17:16)
[2020-10-30 05:26] LABS: #Basophils 0.1 thou/uL (0.0-0.2); #Eosinphils 0.2 thou/uL (0.0-0.7); #Lymphocytes 2.2 thou/uL (1.20-3.40); #Monocytes 1.2 thou/uL (0.11-0.59); #Neutrophils 6.9 thou/uL (1.40-6.50); %Basophils 0.6 % (0.0-1.0); %Eosinophils 2.1 % (0.0-10.0); %Lymphocytes 20.6 % (21.0-51.0); %Monocytes 11.1 % (0.0-10.0); %Neutrophils 65.6 % (42.0-75.0); Hemoglobin 11.4 g/dL (14.0-18.0); Mean Corpuscular HGB CONC 31.2 g/dL (32.0-36.0); Mean Corpuscular Hemoglobin 29.6 pg (27.0-31.0); Mean Corpuscular Volume 95.1 fL (78.0-98.0); Mean Platelet Volume 7.4 fL (7.4-10.4); Platelet Count 255 thou/uL (130-400); Red Blood Cell (RBC) Count 3.85 mill/uL (4.70-6.10); White Blood Cell (WBC) Count 10.5 thou/uL (4.8-10.8)
[2020-10-30] MEDS: HumaLOG 300 UNITS/3 ML VIAL SC PRN ×2 (06:24→13:21)
[2020-10-30] MEDS: Gabapentin 100 MG CAP PO SCH ×3 (08:38→20:11)
[2020-10-30] MEDS: Propafenone HCl 150 MG TAB PO SCH ×3 (08:38→20:12)
[2020-10-30] MEDS: hydrALAZINE 25 MG TAB PO SCH ×2 (08:38→20:11)
[2020-10-30] MEDS: Senokot S 8.6-50 MG TAB PO SCH ×2 (08:38→20:10)
[2020-10-30] MEDS: Aspirin Chewable 81 MG TAB PO SCH (08:38)
[2020-10-30] MEDS: Lantus 1000 UNITS/10 ML VIAL SC SCH ×2 (08:38→22:01)
[2020-10-30] MEDS: Timolol 0.5% Ophth Soln 5 ml Bottle EA EYE SCH ×2 (08:39→20:22)
[2020-10-30] MEDS: Brimonidine Tartrate 0.2% Ophth Soln 5 ml Bottle EA EYE SCH ×2 (08:39→20:23)
[2020-10-30] MEDS: Tamsulosin HCl 0.4 MG CAP PO SCH (20:11)
[2020-10-30] MEDS: Simvastatin 10 MG TAB PO SCH (20:12)
[2020-10-30] MEDS: Latanoprost 0.005% Ophth Soln 2.5 ml Bottle EA EYE SCH (20:22)
[2020-10-31] MEDS: CEFAZOLIN 2 GM in Premix Bag 1 BAG IVPB SCH (02:28)
[2020-10-31 07:23] LABS: #Eosinphils 0.3 thou/uL (0.0-0.7); #Lymphocytes 2.1 thou/uL (1.20-3.40); #Neutrophils 5.4 thou/uL (1.40-6.50); %Basophils 0.4 % (0.0-1.0); %Eosinophils 3.3 % (0.0-10.0); %Lymphocytes 24.2 % (21.0-51.0); %Monocytes 11.7 % (0.0-10.0); %Neutrophils 60.4 % (42.0-75.0); Hemoglobin 10.9 g/dL (14.0-18.0); Mean Corpuscular HGB CONC 29.9 g/dL (32.0-36.0); Mean Corpuscular Hemoglobin 28.5 pg (27.0-31.0); Mean Corpuscular Volume 95.3 fL (78.0-98.0); Mean Platelet Volume 7.5 fL (7.4-10.4); Platelet Count 263 thou/uL (130-400); RBC Morphology Normal; Red Blood Cell (RBC) Count 3.82 mill/uL (4.70-6.10); White Blood Cell (WBC) Count 8.9 thou/uL (4.8-10.8)
[2020-10-31] MEDS: Brimonidine Tartrate 0.2% Ophth Soln 5 ml Bottle EA EYE SCH ×2 (08:36→20:28)
[2020-10-31] MEDS: Senokot S 8.6-50 MG TAB PO SCH ×2 (08:37→20:29)
[2020-10-31] MEDS: Timolol 0.5% Ophth Soln 5 ml Bottle EA EYE SCH ×2 (08:37→20:33)
[2020-10-31] MEDS: Propafenone HCl 150 MG TAB PO SCH ×3 (08:37→20:28)
[2020-10-31] MEDS: Aspirin Chewable 81 MG TAB PO SCH (08:38)
[2020-10-31] MEDS: hydrALAZINE 25 MG TAB PO SCH ×2 (08:38→20:29)
[2020-10-31] MEDS: Gabapentin 100 MG CAP PO SCH ×3 (08:38→20:29)
[2020-10-31] MEDS: Lantus 1000 UNITS/10 ML VIAL SC SCH ×2 (08:38→20:34)
[2020-10-31] MEDS: HumaLOG 300 UNITS/3 ML VIAL SC PRN ×2 (12:45→17:32)
[2020-10-31] MEDS: Tamsulosin HCl 0.4 MG CAP PO SCH (20:29)
[2020-10-31] MEDS: Simvastatin 10 MG TAB PO SCH (20:30)
[2020-10-31] MEDS: Latanoprost 0.005% Ophth Soln 2.5 ml Bottle EA EYE SCH (20:32)
[2020-11-01] MEDS: Timolol 0.5% Ophth Soln 5 ml Bottle EA EYE SCH ×2 (08:25→20:51)
[2020-11-01] MEDS: Brimonidine Tartrate 0.2% Ophth Soln 5 ml Bottle EA EYE SCH ×2 (08:26→20:50)
[2020-11-01] MEDS: Aspirin Chewable 81 MG TAB PO SCH (08:27)
[2020-11-01] MEDS: Gabapentin 100 MG CAP PO SCH ×3 (08:27→20:45)
[2020-11-01] MEDS: Senokot S 8.6-50 MG TAB PO SCH ×2 (08:27→20:46)
[2020-11-01] MEDS: Propafenone HCl 150 MG TAB PO SCH ×3 (08:27→20:47)
[2020-11-01] MEDS: hydrALAZINE 25 MG TAB PO SCH ×2 (08:27→20:46)
[2020-11-01 09:41] LABS: Anion Gap 11 mmol/L (10-20); BUN (Urea Nitrogen) 17 mg/dL (8.4-25.7); Calc. Creatinine Clearance 74 mL/min (70-130); Calcium 8.9 mg/dL (7.8-10.44); Carbon Dioxide 27 mmol/L (23-31); Chloride 108 mmol/L (98-107); Glucose 126 mg/dL (83-110); Magnesium 1.9 mg/dL (1.6-2.6); Potassium 3.9 mmol/L (3.5-5.1); Sodium 142 mmol/L (136-145)
[2020-11-01] MEDS ORDERED: Magnesium 2 GM/50 ML 2 GM in Premix Bag 1 BAG IVPB SCH (10:00)
[2020-11-01] MEDS: Lantus 1000 UNITS/10 ML VIAL SC SCH (20:44)
[2020-11-01] MEDS: Polyethylene Glycol 3350 17 GM Packet PO SCH (20:46)
[2020-11-01] MEDS: Tamsulosin HCl 0.4 MG CAP PO SCH (20:46)
[2020-11-01] MEDS: Latanoprost 0.005% Ophth Soln 2.5 ml Bottle EA EYE SCH (20:49)
[2020-11-01] MEDS: Simvastatin 10 MG TAB PO SCH (20:51)
[2020-11-02] MEDS: hydrALAZINE 25 MG TAB PO SCH ×2 (09:07→21:24)
[2020-11-02] MEDS: Gabapentin 100 MG CAP PO SCH ×3 (09:07→21:25)
[2020-11-02] MEDS: Propafenone HCl 150 MG TAB PO SCH ×3 (09:07→21:25)
[2020-11-02] MEDS: Senokot S 8.6-50 MG TAB PO SCH ×2 (09:07→21:25)
[2020-11-02] MEDS: Aspirin Chewable 81 MG TAB PO SCH (09:07)
[2020-11-02] MEDS: Brimonidine Tartrate 0.2% Ophth Soln 5 ml Bottle EA EYE SCH ×2 (09:08→21:26)
[2020-11-02] MEDS: Timolol 0.5% Ophth Soln 5 ml Bottle EA EYE SCH ×2 (09:10→21:25)
[2020-11-02] MEDS: HumaLOG 300 UNITS/3 ML VIAL SC PRN ×2 (13:35→18:31)
[2020-11-02] MEDS: Tamsulosin HCl 0.4 MG CAP PO SCH (21:24)
[2020-11-02] MEDS: Latanoprost 0.005% Ophth Soln 2.5 ml Bottle EA EYE SCH (21:25)
[2020-11-02] MEDS: Polyethylene Glycol 3350 17 GM Packet PO SCH (21:25)
[2020-11-02] MEDS: Lantus 1000 UNITS/10 ML VIAL SC SCH (21:26)
[2020-11-02] MEDS: Simvastatin 10 MG TAB PO SCH (21:29)
[2020-11-03] MEDS: Aspirin Chewable 81 MG TAB PO SCH (08:23)
[2020-11-03] MEDS: Senokot S 8.6-50 MG TAB PO SCH (08:23)
[2020-11-03] MEDS: Gabapentin 100 MG CAP PO SCH ×2 (08:23→15:24)
[2020-11-03] MEDS: hydrALAZINE 25 MG TAB PO SCH (08:24)
[2020-11-03] MEDS: Propafenone HCl 150 MG TAB PO SCH ×2 (08:24→15:24)
[2020-11-03] MEDS: Brimonidine Tartrate 0.2% Ophth Soln 5 ml Bottle EA EYE SCH (08:27)
[2020-11-03] MEDS: Timolol 0.5% Ophth Soln 5 ml Bottle EA EYE SCH (09:16)
[2020-11-03 15:29] VITALS: BP 148/82; TEMP 97.5
== END 2020-11-03 15:15 | disposition home or self-care (01) | DRG 494 ==
LOC: ERS 15:52 → SJJU 17:55
PROVIDERS: ADMIT Orthopaedic Surgery; ATTEND Orthopaedic Surgery
PROC: 0QSJ04Z Reposition Right Fibula with Internal Fixation Device, Open Approach (ICD-10-PCS; principal; 2020-10-29)
DX: S82.841G Displaced bimalleolar fracture of right lower leg, subsequent encounter for closed fracture with delayed healing (principal); Z20.822 Contact with and (suspected) exposure to COVID-19; E78.5 Hyperlipidemia, unspecified; F03.90 Unspecified dementia, unspecified severity, without behavioral disturbance, psychotic disturbance, mood disturbance, and anxiety; K59.00 Constipation, unspecified; I12.9 Hypertensive chronic kidney disease with stage 1 through stage 4 chronic kidney disease, or unspecified chronic kidney disease; I48.0 Paroxysmal atrial fibrillation; N18.2 Chronic kidney disease, stage 2 (mild); E11.22 Type 2 diabetes mellitus with diabetic chronic kidney disease; Z90.49 Acquired absence of other specified parts of digestive tract; Z79.82 Long term (current) use of aspirin; Z79.899 Other long term (current) drug therapy; Z79.4 Long term (current) use of insulin; E11.649 Type 2 diabetes mellitus with hypoglycemia without coma; E83.42 Hypomagnesemia
CPT/HCPCS: 36415; 36416; 76000; 80048; 80053; 83735; 85025; 85610; 85730; 87635; 93005; 96374; C1713; J0690; J1815; J2405; J2704; J3010; J3475; U0003; U0005

== ENCOUNTER 2020-11-04 18:30 | Inpatient (IN) | payer MEDICARE, OTHER ==
[~2020-11-04 18:30] MED LIST: Iopamidol-370 76% 500 ML 1 ML ONE
[2020-11-04 19:35] LABS: #Lymphocytes 1.1 thou/uL (1.20-3.40); #Monocytes 0.1 thou/uL (0.11-0.59); #Neutrophils 6.9 thou/uL (1.40-6.50); %Basophils 0.3 % (0.0-1.0); %Eosinophils 0.2 % (0.0-10.0); %Lymphocytes 13.8 % (21.0-51.0); %Monocytes 0.8 % (0.0-10.0); %Neutrophils 84.9 % (42.0-75.0); Hemoglobin 12.7 g/dL (14.0-18.0); Mean Corpuscular HGB CONC 30.4 g/dL (32.0-36.0); Mean Corpuscular Hemoglobin 28.9 pg (27.0-31.0); Mean Corpuscular Volume 94.9 fL (78.0-98.0); Mean Platelet Volume 7.4 fL (7.4-10.4); Platelet Count 325 thou/uL (130-400); RBC Distribution Width 13.6 % (11.5-14.5); Red Blood Cell (RBC) Count 4.39 mill/uL (4.70-6.10); White Blood Cell (WBC) Count 8.1 thou/uL (4.8-10.8)
[2020-11-04 20:04] LABS: ALT (SGPT) Less than 7 U/L (8-55); AST (SGOT) 11 U/L (5-34); Albumin 3.3 g/dL (3.4-4.8); Alkaline Phosphatase 140 U/L (40-110); Anion Gap 14 mmol/L (10-20); BUN (Urea Nitrogen) 15 mg/dL (8.4-25.7); Bilirubin, Total 0.6 mg/dL (0.2-1.2); Calc. Creatinine Clearance 0 mL/min (70-130); Carbon Dioxide 27 mmol/L (23-31); Chloride 103 mmol/L (98-107); Globulin 3.3 g/dL (2.4-3.5); Glucose 248 mg/dL (83-110); Magnesium 1.9 mg/dL (1.6-2.6); Potassium 4.7 mmol/L (3.5-5.1); Protein, Total 6.6 g/dL (5.8-8.1); Sodium 139 mmol/L (136-145)
[2020-11-04] MEDS ORDERED: Furosemide 40 MG/4 ML VIAL ONE (22:00)
[2020-11-04] MEDS ORDERED: Piperacillin/Tazobactam 3.375 GM VIAL ONE (22:00)
[2020-11-04] MEDS ORDERED: Ondansetron PF 4 MG/2 ML Vial IVP PRN (23:07)
[2020-11-04] MEDS ORDERED: Dextrose 50% Abboject 50 ML SYRINGE SLOW IVP PRN (23:07)
[2020-11-04] MEDS ORDERED: Ondansetron ODT 4 MG TAB PO PRN (23:07)
[2020-11-04] MEDS ORDERED: Dextrose 5% in Water 1,000 ML IV PRN (23:07)
[2020-11-04] MEDS ORDERED: Acetaminophen 325 MG TAB PO PRN (23:07)
[2020-11-04 23:26] LABS: Troponin I Less than 0.010 ng/mL (< 0.028)
[2020-11-05 02:07] LABS: Troponin I Less than 0.010 ng/mL (< 0.028)
[2020-11-05] MEDS: Furosemide 40 MG/4 ML VIAL SLOW IVP SCH ×2 (05:57→14:32)
[2020-11-05] MEDS ORDERED: Piperacillin/Tazobactam 3.375 GM in Sodium Chloride 0.9% 100 ML IVPB SCH (06:00)
[2020-11-05] MEDS: HumaLOG 300 UNITS/3 ML VIAL SC PRN ×3 (06:22→16:55)
[2020-11-05 08:48] LABS: #Lymphocytes 2.3 thou/uL (1.20-3.40); #Monocytes 0.8 thou/uL (0.11-0.59); #Neutrophils 8.1 thou/uL (1.40-6.50); %Basophils 0.3 % (0.0-1.0); %Lymphocytes 20.4 % (21.0-51.0); %Monocytes 6.9 % (0.0-10.0); %Neutrophils 72.3 % (42.0-75.0); Hemoglobin 12.6 g/dL (14.0-18.0); Mean Corpuscular HGB CONC 30.4 g/dL (32.0-36.0); Mean Corpuscular Hemoglobin 28.5 pg (27.0-31.0); Mean Platelet Volume 7.4 fL (7.4-10.4); Platelet Count 334 thou/uL (130-400); RBC Distribution Width 13.7 % (11.5-14.5); Red Blood Cell (RBC) Count 4.41 mill/uL (4.70-6.10); White Blood Cell (WBC) Count 11.2 thou/uL (4.8-10.8)
[2020-11-05] MEDS: Enoxaparin Sodium 40 MG/0.4 ML SYRINGE SC SCH (09:20)
[2020-11-05 09:22] LABS: Anion Gap 12 mmol/L (10-20); BUN (Urea Nitrogen) 14 mg/dL (8.4-25.7); Calc. Creatinine Clearance 67 mL/min (70-130); Calcium 8.7 mg/dL (7.8-10.44); Carbon Dioxide 31 mmol/L (23-31); Chloride 99 mmol/L (98-107); Glucose 194 mg/dL (83-110); Potassium 3.8 mmol/L (3.5-5.1); Sodium 138 mmol/L (136-145)
[2020-11-05] MEDS ORDERED: Aspirin Chewable 81 MG TAB PO SCH (11:00)
[2020-11-05 12:23] LABS: #Lymphocytes 2.4 thou/uL (1.20-3.40); #Monocytes 0.9 thou/uL (0.11-0.59); #Neutrophils 9.3 thou/uL (1.40-6.50); %Basophils 0.2 % (0.0-1.0); %Eosinophils 0.2 % (0.0-10.0); %Lymphocytes 19.1 % (21.0-51.0); %Monocytes 7.5 % (0.0-10.0); %Neutrophils 73.1 % (42.0-75.0); Hemoglobin 12.5 g/dL (14.0-18.0); Mean Corpuscular HGB CONC 31.7 g/dL (32.0-36.0); Mean Corpuscular Hemoglobin 29.6 pg (27.0-31.0); Mean Corpuscular Volume 93.5 fL (78.0-98.0); Mean Platelet Volume 7.3 fL (7.4-10.4); Platelet Count 329 thou/uL (130-400); RBC Distribution Width 13.8 % (11.5-14.5); Red Blood Cell (RBC) Count 4.22 mill/uL (4.70-6.10); White Blood Cell (WBC) Count 12.7 thou/uL (4.8-10.8)
[2020-11-05] MEDS: Gabapentin 100 MG CAP PO SCH ×2 (14:33→21:51)
[2020-11-05] MEDS: Propafenone HCl 150 MG TAB PO SCH ×2 (14:33→21:52)
[2020-11-05] MEDS ORDERED: Spironolactone 25 MG TAB PO SCH (16:15)
[2020-11-05] MEDS: Senokot S 8.6-50 MG TAB PO SCH (21:51)
[2020-11-05] MEDS: hydrALAZINE 25 MG TAB PO SCH (21:53)
[2020-11-05] MEDS: Tamsulosin HCl 0.4 MG CAP PO SCH (21:53)
[2020-11-05] MEDS: Latanoprost 0.005% Ophth Soln 2.5 ml Bottle EA EYE SCH (21:54)
[2020-11-05] MEDS: Brimonidine Tartrate 0.2% Ophth Soln 5 ml Bottle EA EYE SCH (21:55)
[2020-11-05] MEDS: Simvastatin 10 MG TAB PO SCH (22:05)
[2020-11-05] MEDS: Timolol 0.5% Ophth Soln 5 ml Bottle EA EYE SCH (22:46)
[2020-11-06 05:22] LABS: Anion Gap 12 mmol/L (10-20); BUN (Urea Nitrogen) 15 mg/dL (8.4-25.7); Calc. Creatinine Clearance 73 mL/min (70-130); Calcium 8.4 mg/dL (7.8-10.44); Carbon Dioxide 34 mmol/L (23-31); Chloride 98 mmol/L (98-107); Glucose 161 mg/dL (83-110); Potassium 3.6 mmol/L (3.5-5.1); Sodium 140 mmol/L (136-145)
[2020-11-06] MEDS: HumaLOG 300 UNITS/3 ML VIAL SC PRN ×3 (06:45→17:36)
[2020-11-06] MEDS: Furosemide 40 MG/4 ML VIAL SLOW IVP SCH ×2 (06:45→14:19)
[2020-11-06] MEDS: Senokot S 8.6-50 MG TAB PO SCH ×2 (09:59→21:32)
[2020-11-06] MEDS: Gabapentin 100 MG CAP PO SCH ×3 (09:59→21:32)
[2020-11-06] MEDS: Aspirin Chewable 81 MG TAB PO SCH (09:59)
[2020-11-06] MEDS: Enoxaparin Sodium 40 MG/0.4 ML SYRINGE SC SCH (09:59)
[2020-11-06] MEDS: Propafenone HCl 150 MG TAB PO SCH ×3 (09:59→21:32)
[2020-11-06] MEDS: hydrALAZINE 25 MG TAB PO SCH ×2 (10:00→21:32)
[2020-11-06] MEDS: Spironolactone 25 MG TAB PO SCH (10:00)
[2020-11-06] MEDS: Brimonidine Tartrate 0.2% Ophth Soln 5 ml Bottle EA EYE SCH ×2 (10:00→21:34)
[2020-11-06] MEDS: Timolol 0.5% Ophth Soln 5 ml Bottle EA EYE SCH ×2 (10:01→21:33)
[2020-11-06 12:23] VITALS: BMI 28.7
[2020-11-06] MEDS: Tamsulosin HCl 0.4 MG CAP PO SCH (21:32)
[2020-11-06] MEDS: Simvastatin 10 MG TAB PO SCH (21:32)
[2020-11-06] MEDS: Latanoprost 0.005% Ophth Soln 2.5 ml Bottle EA EYE SCH (21:33)
[2020-11-07 05:28] LABS: Anion Gap 13 mmol/L (10-20); BUN (Urea Nitrogen) 17 mg/dL (8.4-25.7); Calc. Creatinine Clearance 72 mL/min (70-130); Calcium 8.5 mg/dL (7.8-10.44); Carbon Dioxide 31 mmol/L (23-31); Chloride 97 mmol/L (98-107); Glucose 168 mg/dL (83-110); Potassium 3.9 mmol/L (3.5-5.1); Sodium 137 mmol/L (136-145)
[2020-11-07] MEDS: HumaLOG 300 UNITS/3 ML VIAL SC PRN ×4 (06:55→21:15)
[2020-11-07] MEDS: Furosemide 40 MG/4 ML VIAL SLOW IVP SCH ×2 (06:55→14:14)
[2020-11-07] MEDS: Spironolactone 25 MG TAB PO SCH (10:02)
[2020-11-07] MEDS: Enoxaparin Sodium 40 MG/0.4 ML SYRINGE SC SCH (10:02)
[2020-11-07] MEDS: Senokot S 8.6-50 MG TAB PO SCH ×2 (10:02→20:24)
[2020-11-07] MEDS: hydrALAZINE 25 MG TAB PO SCH ×2 (10:03→20:23)
[2020-11-07] MEDS: Gabapentin 100 MG CAP PO SCH ×3 (10:03→20:22)
[2020-11-07] MEDS: Aspirin Chewable 81 MG TAB PO SCH (10:03)
[2020-11-07] MEDS: Propafenone HCl 150 MG TAB PO SCH ×3 (10:03→20:24)
[2020-11-07] MEDS: Brimonidine Tartrate 0.2% Ophth Soln 5 ml Bottle EA EYE SCH ×2 (10:04→20:22)
[2020-11-07] MEDS: Timolol 0.5% Ophth Soln 5 ml Bottle EA EYE SCH ×2 (10:04→20:25)
[2020-11-07] MEDS: Simvastatin 10 MG TAB PO SCH (20:24)
[2020-11-07] MEDS: Latanoprost 0.005% Ophth Soln 2.5 ml Bottle EA EYE SCH (20:24)
[2020-11-07] MEDS: Tamsulosin HCl 0.4 MG CAP PO SCH (20:24)
[2020-11-08 05:24] LABS: Anion Gap 14 mmol/L (10-20); BUN (Urea Nitrogen) 26 mg/dL (8.4-25.7); Calc. Creatinine Clearance 58 mL/min (70-130); Calcium 8.7 mg/dL (7.8-10.44); Carbon Dioxide 30 mmol/L (23-31); Chloride 97 mmol/L (98-107); Glucose 191 mg/dL (83-110); Potassium 3.9 mmol/L (3.5-5.1); Sodium 137 mmol/L (136-145)
[2020-11-08] MEDS: Furosemide 40 MG/4 ML VIAL SLOW IVP SCH (05:57)
[2020-11-08] MEDS: HumaLOG 300 UNITS/3 ML VIAL SC PRN ×4 (05:58→21:54)
[2020-11-08] MEDS: hydrALAZINE 25 MG TAB PO SCH ×2 (08:30→21:53)
[2020-11-08] MEDS: Enoxaparin Sodium 40 MG/0.4 ML SYRINGE SC SCH (08:30)
[2020-11-08] MEDS: Aspirin Chewable 81 MG TAB PO SCH (08:30)
[2020-11-08] MEDS: Propafenone HCl 150 MG TAB PO SCH ×3 (08:31→21:54)
[2020-11-08] MEDS: Spironolactone 25 MG TAB PO SCH (08:31)
[2020-11-08] MEDS: Gabapentin 100 MG CAP PO SCH ×3 (08:31→21:53)
[2020-11-08] MEDS: Brimonidine Tartrate 0.2% Ophth Soln 5 ml Bottle EA EYE SCH ×2 (08:31→21:51)
[2020-11-08] MEDS: Senokot S 8.6-50 MG TAB PO SCH ×2 (08:31→21:54)
[2020-11-08] MEDS: Timolol 0.5% Ophth Soln 5 ml Bottle EA EYE SCH ×2 (08:32→21:52)
[2020-11-08] MEDS: Latanoprost 0.005% Ophth Soln 2.5 ml Bottle EA EYE SCH (21:52)
[2020-11-08] MEDS: Simvastatin 10 MG TAB PO SCH (21:54)
[2020-11-08] MEDS: Tamsulosin HCl 0.4 MG CAP PO SCH (21:54)
[2020-11-09] MEDS: HumaLOG 300 UNITS/3 ML VIAL SC PRN ×2 (05:40→10:59)
[2020-11-09 05:56] LABS: Anion Gap 10 mmol/L (10-20); BUN (Urea Nitrogen) 26 mg/dL (8.4-25.7); Calc. Creatinine Clearance 61 mL/min (70-130); Calcium 9.1 mg/dL (7.8-10.44); Carbon Dioxide 33 mmol/L (23-31); Chloride 97 mmol/L (98-107); Glucose 222 mg/dL (83-110); Potassium 3.9 mmol/L (3.5-5.1); Sodium 136 mmol/L (136-145)
[2020-11-09] MEDS ORDERED: Furosemide 40 MG TAB PO SCH (07:30)
[2020-11-09] MEDS: Propafenone HCl 150 MG TAB PO SCH (08:51)
[2020-11-09] MEDS: Aspirin Chewable 81 MG TAB PO SCH (08:52)
[2020-11-09] MEDS: Senokot S 8.6-50 MG TAB PO SCH (08:52)
[2020-11-09] MEDS: Gabapentin 100 MG CAP PO SCH (08:53)
[2020-11-09] MEDS: Spironolactone 25 MG TAB PO SCH (08:53)
[2020-11-09] MEDS: Enoxaparin Sodium 40 MG/0.4 ML SYRINGE SC SCH (08:54)
[2020-11-09] MEDS: hydrALAZINE 25 MG TAB PO SCH (08:54)
[2020-11-09] MEDS: Brimonidine Tartrate 0.2% Ophth Soln 5 ml Bottle EA EYE SCH (08:55)
[2020-11-09] MEDS: Timolol 0.5% Ophth Soln 5 ml Bottle EA EYE SCH (08:56)
[2020-11-09] MEDS ORDERED: Lantus 1000 UNITS/10 ML VIAL SC SCH (09:00)
[2020-11-09 11:44] VITALS: BP 129/63; TEMP 97.6
== END 2020-11-09 12:50 | disposition home health service (06) | DRG 291 ==
LOC: ERS 18:30 → 2SE 21:53
PROVIDERS: ADMIT Student in an Organized Health Care Education/Training Program; ATTEND Internal Medicine
DX: I11.0 Hypertensive heart disease with heart failure (principal); L89.623 Pressure ulcer of left heel, stage 3; I50.33 Acute on chronic diastolic (congestive) heart failure; Z20.822 Contact with and (suspected) exposure to COVID-19; E11.9 Type 2 diabetes mellitus without complications; E78.5 Hyperlipidemia, unspecified; I48.91 Unspecified atrial fibrillation; N40.0 Benign prostatic hyperplasia without lower urinary tract symptoms; R09.02 Hypoxemia; Z79.899 Other long term (current) drug therapy; Z79.4 Long term (current) use of insulin; Z79.82 Long term (current) use of aspirin; Z90.49 Acquired absence of other specified parts of digestive tract; Z98.890 Other specified postprocedural states; S82.841D Displaced bimalleolar fracture of right lower leg, subsequent encounter for closed fracture with routine healing
CPT/HCPCS: 36415; 36416; 71045; 71275; 80048; 80053; 83735; 83880; 84484; 85025; 85379; 87040; 93005; 93306; 93798; 96365; 96366; 96375; J1650; J1815; J1940; J2543; J3490; Q9967

== ENCOUNTER 2020-12-15 07:27 | Inpatient (IN) | payer MEDICARE, OTHER ==
[2020-12-15] MEDS ORDERED: cefTRIAXone\\ROCEPHIN 2 GM VIAL ONE (07:48)
[2020-12-15 08:11] LABS: Hemoglobin 12.9 g/dL (14.0-18.0); Mean Corpuscular HGB CONC 30.9 g/dL (32.0-36.0); Mean Corpuscular Hemoglobin 27.7 pg (27.0-31.0); Mean Corpuscular Volume 89.5 fL (78.0-98.0); Mean Platelet Volume 7.7 fL (7.4-10.4); Platelet Count 252 thou/uL (130-400); RBC Distribution Width 14.2 % (11.5-14.5); Red Blood Cell (RBC) Count 4.65 mill/uL (4.70-6.10); White Blood Cell (WBC) Count 32.5 thou/uL (4.8-10.8)
[2020-12-15 08:21] LABS: INR-International Normal Ratio 1.4; Prothrombin Time 16.8 sec (12.0-14.7)
[2020-12-15 08:22] LABS: PTT 35.2 sec (22.9-36.1)
[2020-12-15 08:27] LABS: ALT (SGPT) 36 U/L (8-55); AST (SGOT) 40 U/L (5-34); Albumin 3.3 g/dL (3.4-4.8); Alkaline Phosphatase 136 U/L (40-110); Anion Gap 15 mmol/L (10-20); BUN (Urea Nitrogen) 35 mg/dL (8.4-25.7); Bilirubin, Total 1.1 mg/dL (0.2-1.2); Calc. Creatinine Clearance 0 mL/min (70-130); Calcium 8.8 mg/dL (7.8-10.44); Carbon Dioxide 24 mmol/L (23-31); Chloride 103 mmol/L (98-107); Glucose 109 mg/dL (83-110); Potassium 3.8 mmol/L (3.5-5.1); Protein, Total 6.3 g/dL (5.8-8.1); Sodium 138 mmol/L (136-145)
[2020-12-15 08:30] LABS: Band 22 % (5-11); Lymphocytes 13 % (21-51); MDiff Complete? YES; Monocytes 7 % (0-10); Neutrophil 57 % (42-75); Platelet Morphology Comment Appears Adequate
[2020-12-15 08:58] LABS: Bilirubin Negative (Negative); Blood, Urine 1+ (Negative); Clarity Extra Turbid (Clear); Glucose, Urine (Dipstick) Normal (Negative); Ketone, Urine Negative (Negative); Leukocyte 500 Leu/uL (Negative); Nitrite Negative (Negative); Protein, Urine (Dipstick) 70 mg/dL (Neg-Trace); Specific Gravity, Urine 1.013 (1.002-1.036); Squamous Epithelial 0-3 HPF (0-3); Urobilinogen Normal mg/dL (Less than 2); WBC/HPF Greater than 50 HPF (0-3)
[2020-12-15 09:09] LABS: SARS-CoV-2 NAA Rapid Test Not Detected (NotDetected)
[2020-12-15 09:09] LABS: Bacteria/HPF 3+ HPF (None Seen); Yeast-Budding None Seen HPF (None Seen)
[2020-12-15 11:49] LABS: Lactic Acid 2.8 mmol/L (0.5-2.2)
[2020-12-15] MEDS ORDERED: Vancomycin 1 GM/200 ML BAG ONE (12:43)
[2020-12-15 13:12] LABS: Lactic Acid 2.7 mmol/L (0.5-2.2)
[2020-12-15] MEDS ORDERED: Dextrose 5% in Water 1,000 ML IV PRN (15:06)
[2020-12-15] MEDS ORDERED: Dextrose 50% Abboject 50 ML SYRINGE SLOW IVP PRN (15:06)
[2020-12-15 16:51] LABS: Lactic Acid 3.1 mmol/L (0.5-2.2)
[2020-12-15 18:18] VITALS: BMI 29.4
[2020-12-15] MEDS: HumaLOG 300 UNITS/3 ML VIAL SC PRN (21:17)
[2020-12-15] MEDS: Sodium Chloride 0.9% 1,000 ML IV SCH ×2 (21:22→23:30)
[2020-12-15] MEDS ORDERED: Calcium Carbonate 500 MG ChewTAB PO PRN (21:37)
[2020-12-16] MEDS: Sodium Chloride 0.9% 1,000 ML IV SCH ×3 (05:01→22:57)
[2020-12-16 05:22] LABS: Hemoglobin 12.1 g/dL (14.0-18.0); Mean Corpuscular HGB CONC 32.9 g/dL (32.0-36.0); Mean Corpuscular Hemoglobin 29.6 pg (27.0-31.0); Mean Corpuscular Volume 89.9 fL (78.0-98.0); Platelet Count 235 thou/uL (130-400); RBC Distribution Width 14.4 % (11.5-14.5); Red Blood Cell (RBC) Count 4.09 mill/uL (4.70-6.10); White Blood Cell (WBC) Count 33.6 thou/uL (4.8-10.8)
[2020-12-16 05:38] LABS: Band 40 % (5-11); Lymphocytes 5 % (21-51); MDiff Complete? YES; Metamyelocyte 1 % (0-0); Monocytes 3 % (0-10); Neutrophil 50 % (42-75); Reactive Lymphocytes 1 % (0-10)
[2020-12-16 05:44] LABS: Anion Gap 14 mmol/L (10-20); BUN (Urea Nitrogen) 35 mg/dL (8.4-25.7); Calc. Creatinine Clearance 59 mL/min (70-130); Calcium 8.6 mg/dL (7.8-10.44); Carbon Dioxide 22 mmol/L (23-31); Chloride 105 mmol/L (98-107); Glucose 170 mg/dL (83-110); Potassium 3.7 mmol/L (3.5-5.1); Sodium 137 mmol/L (136-145)
[2020-12-16] MEDS: HumaLOG 300 UNITS/3 ML VIAL SC PRN ×3 (05:58→20:52)
[2020-12-16] MEDS ORDERED: cefTRIAXone\\ROCEPHIN 2 GM in Sodium Chloride 0.9% 100 ML IVPB SCH (08:00)
[2020-12-16] MEDS ORDERED: Propafenone HCl 150 MG TAB PO SCH ×2 (12:30→15:00)
[2020-12-16] MEDS: MEROPENEM 1 GM/50 ML 1 GM in Premix Bag 1 BAG IVPB SCH ×2 (12:38→17:55)
[2020-12-16] MEDS ORDERED: Vancomycin 1.5 GRAM/300 ML BAG 1.5 GM in Premix Bag 1 BAG IVPB SCH (13:00)
[2020-12-16] MEDS ORDERED: Digoxin 0.5 MG/2 ML AMP SLOW IVP SCH (13:15)
[2020-12-16] MEDS ORDERED: Sodium Chloride 0.9% 500 ML IV SCH (13:45)
[2020-12-16] MEDS ORDERED: MEROPENEM 1 GM/50 ML 1 GM in Premix Bag 1 BAG IVPB SCH (14:00)
[2020-12-16] MEDS: Simvastatin 10 MG TAB PO SCH (20:17)
[2020-12-16] MEDS: Tamsulosin HCl 0.4 MG CAP PO SCH (20:17)
[2020-12-16] MEDS: Latanoprost 0.005% Ophth Soln 2.5 ml Bottle EA EYE SCH (20:51)
[2020-12-17] MEDS: MEROPENEM 1 GM/50 ML 1 GM in Premix Bag 1 BAG IVPB SCH ×3 (02:20→17:44)
[2020-12-17 05:23] LABS: Anion Gap 12 mmol/L (10-20); BUN (Urea Nitrogen) 32 mg/dL (8.4-25.7); Calc. Creatinine Clearance 70 mL/min (70-130); Calcium 8.5 mg/dL (7.8-10.44); Carbon Dioxide 22 mmol/L (23-31); Chloride 109 mmol/L (98-107); Glucose 213 mg/dL (83-110); Potassium 3.6 mmol/L (3.5-5.1); Sodium 139 mmol/L (136-145)
[2020-12-17 05:37] LABS: #Monocytes 1.6 thou/uL (0.11-0.59); #Neutrophils 19.7 thou/uL (1.40-6.50); %Basophils 0.2 % (0.0-1.0); %Eosinophils 0.1 % (0.0-10.0); %Lymphocytes 8.6 % (21.0-51.0); %Monocytes 6.6 % (0.0-10.0); %Neutrophils 84.5 % (42.0-75.0); Mean Corpuscular HGB CONC 31.6 g/dL (32.0-36.0); Mean Corpuscular Hemoglobin 28.5 pg (27.0-31.0); Mean Corpuscular Volume 90.1 fL (78.0-98.0); Platelet Count 228 thou/uL (130-400); RBC Distribution Width 14.3 % (11.5-14.5); Red Blood Cell (RBC) Count 4.21 mill/uL (4.70-6.10); White Blood Cell (WBC) Count 23.3 thou/uL (4.8-10.8)
[2020-12-17] MEDS: HumaLOG 300 UNITS/3 ML VIAL SC PRN ×4 (06:01→20:39)
[2020-12-17] MEDS: Sodium Chloride 0.9% 1,000 ML IV SCH ×2 (08:36→16:17)
[2020-12-17] MEDS: Furosemide 40 MG TAB PO SCH (09:42)
[2020-12-17] MEDS ORDERED: Melatonin 3 MG TAB PO PRN (17:25)
[2020-12-17] MEDS: Latanoprost 0.005% Ophth Soln 2.5 ml Bottle EA EYE SCH (20:29)
[2020-12-17] MEDS: Simvastatin 10 MG TAB PO SCH (20:30)
[2020-12-17] MEDS: Tamsulosin HCl 0.4 MG CAP PO SCH (20:30)
[2020-12-18] MEDS: Sodium Chloride 0.9% 1,000 ML IV SCH ×3 (01:17→17:32)
[2020-12-18] MEDS: MEROPENEM 1 GM/50 ML 1 GM in Premix Bag 1 BAG IVPB SCH ×3 (01:18→18:21)
[2020-12-18 05:09] LABS: #Basophils 0.1 thou/uL (0.0-0.2); #Eosinphils 0.1 thou/uL (0.0-0.7); #Lymphocytes 1.5 thou/uL (1.20-3.40); #Monocytes 1.2 thou/uL (0.11-0.59); #Neutrophils 12.3 thou/uL (1.40-6.50); %Basophils 0.7 % (0.0-1.0); %Eosinophils 0.6 % (0.0-10.0); %Monocytes 7.7 % (0.0-10.0); Hemoglobin 12.5 g/dL (14.0-18.0); Mean Corpuscular HGB CONC 31.2 g/dL (32.0-36.0); Mean Corpuscular Hemoglobin 28.2 pg (27.0-31.0); Mean Corpuscular Volume 90.2 fL (78.0-98.0); Mean Platelet Volume 7.7 fL (7.4-10.4); Platelet Count 238 thou/uL (130-400); RBC Distribution Width 14.3 % (11.5-14.5); Red Blood Cell (RBC) Count 4.43 mill/uL (4.70-6.10); White Blood Cell (WBC) Count 15.2 thou/uL (4.8-10.8)
[2020-12-18 05:38] LABS: Anion Gap 14 mmol/L (10-20); BUN (Urea Nitrogen) 24 mg/dL (8.4-25.7); Calc. Creatinine Clearance 88 mL/min (70-130); Calcium 8.5 mg/dL (7.8-10.44); Carbon Dioxide 22 mmol/L (23-31); Chloride 107 mmol/L (98-107); Glucose 194 mg/dL (83-110); Potassium 3.3 mmol/L (3.5-5.1); Sodium 140 mmol/L (136-145)
[2020-12-18] MEDS: HumaLOG 300 UNITS/3 ML VIAL SC PRN ×3 (06:12→17:55)
[2020-12-18] MEDS ORDERED: Potassium Chloride 20 MEQ TAB PO SCH (07:30)
[2020-12-18] MEDS ORDERED: Magnesium 2 GM/50 ML 2 GM in Premix Bag 1 BAG IVPB SCH (08:00)
[2020-12-18] MEDS ORDERED: Aspirin 325 MG TAB PO SCH (09:00)
[2020-12-18] MEDS ORDERED: INSULIN DETEMIR SC SCH (09:00)
[2020-12-18] MEDS: Aspirin Chewable 81 MG TAB PO SCH (09:02)
[2020-12-18] MEDS: Metoprolol Tartrate 25 MG TAB PO SCH ×2 (09:02→21:25)
[2020-12-18] MEDS: Furosemide 40 MG TAB PO SCH (09:02)
[2020-12-18] MEDS: Senokot S 8.6-50 MG TAB PO SCH ×2 (09:02→21:25)
[2020-12-18] MEDS: Lantus 1000 UNITS/10 ML VIAL SC SCH (09:05)
[2020-12-18] MEDS: Timolol 0.5% Ophth Soln 5 ml Bottle EA EYE SCH ×2 (09:17→21:24)
[2020-12-18] MEDS: Brimonidine Tartrate 0.2% Ophth Soln 5 ml Bottle EA EYE SCH ×2 (09:18→21:24)
[2020-12-18] MEDS: Lactated Ringer's 1,000 ML IV SCH (17:55)
[2020-12-18] MEDS: Latanoprost 0.005% Ophth Soln 2.5 ml Bottle EA EYE SCH (21:24)
[2020-12-18] MEDS: Simvastatin 10 MG TAB PO SCH (21:25)
[2020-12-18] MEDS: Tamsulosin HCl 0.4 MG CAP PO SCH (21:25)
[2020-12-19] MEDS: MEROPENEM 1 GM/50 ML 1 GM in Premix Bag 1 BAG IVPB SCH ×3 (02:21→18:20)
[2020-12-19 05:14] LABS: #Eosinphils 0.2 thou/uL (0.0-0.7); #Lymphocytes 1.8 thou/uL (1.20-3.40); #Monocytes 1.2 thou/uL (0.11-0.59); #Neutrophils 9.4 thou/uL (1.40-6.50); %Basophils 0.1 % (0.0-1.0); %Eosinophils 1.7 % (0.0-10.0); %Lymphocytes 14.3 % (21.0-51.0); %Monocytes 9.5 % (0.0-10.0); %Neutrophils 74.4 % (42.0-75.0); Hemoglobin 12.8 g/dL (14.0-18.0); Mean Corpuscular HGB CONC 31.7 g/dL (32.0-36.0); Mean Corpuscular Hemoglobin 28.3 pg (27.0-31.0); Mean Corpuscular Volume 89.4 fL (78.0-98.0); Mean Platelet Volume 8.2 fL (7.4-10.4); Platelet Count 219 thou/uL (130-400); RBC Distribution Width 14.4 % (11.5-14.5); Red Blood Cell (RBC) Count 4.53 mill/uL (4.70-6.10); White Blood Cell (WBC) Count 12.6 thou/uL (4.8-10.8)
[2020-12-19 05:38] LABS: Anion Gap 13 mmol/L (10-20); BUN (Urea Nitrogen) 21 mg/dL (8.4-25.7); Calc. Creatinine Clearance 97 mL/min (70-130); Calcium 8.4 mg/dL (7.8-10.44); Carbon Dioxide 24 mmol/L (23-31); Chloride 106 mmol/L (98-107); Glucose 177 mg/dL (83-110); Potassium 3.7 mmol/L (3.5-5.1); Sodium 139 mmol/L (136-145)
[2020-12-19] MEDS: HumaLOG 300 UNITS/3 ML VIAL SC PRN ×4 (06:12→21:05)
[2020-12-19] MEDS: Lantus 1000 UNITS/10 ML VIAL SC SCH (09:24)
[2020-12-19] MEDS: Metoprolol Tartrate 25 MG TAB PO SCH ×2 (09:25→20:25)
[2020-12-19] MEDS: Aspirin Chewable 81 MG TAB PO SCH (09:25)
[2020-12-19] MEDS: Senokot S 8.6-50 MG TAB PO SCH ×2 (09:25→20:25)
[2020-12-19] MEDS: Furosemide 40 MG TAB PO SCH (09:26)
[2020-12-19] MEDS: Brimonidine Tartrate 0.2% Ophth Soln 5 ml Bottle EA EYE SCH ×2 (09:26→20:24)
[2020-12-19] MEDS: Timolol 0.5% Ophth Soln 5 ml Bottle EA EYE SCH ×2 (09:26→20:24)
[2020-12-19] MEDS: Lactated Ringer's 1,000 ML IV SCH (14:46)
[2020-12-19] MEDS: Simvastatin 10 MG TAB PO SCH (20:24)
[2020-12-19] MEDS: Latanoprost 0.005% Ophth Soln 2.5 ml Bottle EA EYE SCH (20:24)
[2020-12-19] MEDS: Gabapentin 100 MG CAP PO SCH (20:25)
[2020-12-19] MEDS: Tamsulosin HCl 0.4 MG CAP PO SCH (20:25)
[2020-12-19] MEDS: hydrALAZINE 25 MG TAB PO SCH (20:25)
[2020-12-20] MEDS: MEROPENEM 1 GM/50 ML 1 GM in Premix Bag 1 BAG IVPB SCH ×2 (02:56→08:50)
[2020-12-20] MEDS: Lactated Ringer's 1,000 ML IV SCH (03:00)
[2020-12-20 04:18] LABS: #Eosinphils 0.2 thou/uL (0.0-0.7); #Lymphocytes 2.2 thou/uL (1.20-3.40); #Monocytes 1.2 thou/uL (0.11-0.59); #Neutrophils 7.6 thou/uL (1.40-6.50); %Basophils 0.2 % (0.0-1.0); %Eosinophils 1.8 % (0.0-10.0); %Lymphocytes 19.3 % (21.0-51.0); %Monocytes 11.1 % (0.0-10.0); %Neutrophils 67.6 % (42.0-75.0); Hemoglobin 13.2 g/dL (14.0-18.0); Mean Corpuscular HGB CONC 32.8 g/dL (32.0-36.0); Mean Corpuscular Hemoglobin 29.2 pg (27.0-31.0); Mean Corpuscular Volume 88.9 fL (78.0-98.0); Mean Platelet Volume 7.9 fL (7.4-10.4); Platelet Count 238 thou/uL (130-400); RBC Distribution Width 14.5 % (11.5-14.5); Red Blood Cell (RBC) Count 4.51 mill/uL (4.70-6.10); White Blood Cell (WBC) Count 11.2 thou/uL (4.8-10.8)
[2020-12-20 04:38] LABS: Anion Gap 9 mmol/L (10-20); BUN (Urea Nitrogen) 19 mg/dL (8.4-25.7); Calc. Creatinine Clearance 93 mL/min (70-130); Calcium 8.3 mg/dL (7.8-10.44); Carbon Dioxide 27 mmol/L (23-31); Chloride 105 mmol/L (98-107); Glucose 211 mg/dL (83-110); Potassium 3.2 mmol/L (3.5-5.1); Sodium 138 mmol/L (136-145)
[2020-12-20] MEDS: HumaLOG 300 UNITS/3 ML VIAL SC PRN ×2 (06:14→11:19)
[2020-12-20] MEDS: Furosemide 40 MG TAB PO SCH (07:59)
[2020-12-20] MEDS: Senokot S 8.6-50 MG TAB PO SCH (07:59)
[2020-12-20] MEDS: hydrALAZINE 25 MG TAB PO SCH (07:59)
[2020-12-20] MEDS: Gabapentin 100 MG CAP PO SCH ×2 (07:59→14:38)
[2020-12-20] MEDS: Aspirin Chewable 81 MG TAB PO SCH (08:00)
[2020-12-20] MEDS: Brimonidine Tartrate 0.2% Ophth Soln 5 ml Bottle EA EYE SCH (08:01)
[2020-12-20] MEDS: Metoprolol Tartrate 25 MG TAB PO SCH (08:49)
[2020-12-20] MEDS: Timolol 0.5% Ophth Soln 5 ml Bottle EA EYE SCH (08:50)
[2020-12-20] MEDS ORDERED: Lantus 1000 UNITS/10 ML VIAL SC SCH (09:00)
[2020-12-20] MEDS ORDERED: Potassium Chloride 20 MEQ TAB PO SCH (13:00)
[2020-12-20 17:39] VITALS: BP 156/66; TEMP 98.7
== END 2020-12-20 17:39 | disposition home health service (06) | DRG 871 ==
LOC: ERS 07:27 → ERHOLD 12:27 → 2NO 17:49
PROVIDERS: ADMIT Internal Medicine; ATTEND Internal Medicine
DX: A41.52 Sepsis due to Pseudomonas (principal); G93.41 Metabolic encephalopathy; N39.0 Urinary tract infection, site not specified; E11.22 Type 2 diabetes mellitus with diabetic chronic kidney disease; N18.30 Chronic kidney disease, stage 3 unspecified; I12.9 Hypertensive chronic kidney disease with stage 1 through stage 4 chronic kidney disease, or unspecified chronic kidney disease; B00.1 Herpesviral vesicular dermatitis; E78.5 Hyperlipidemia, unspecified; Z20.822 Contact with and (suspected) exposure to COVID-19; E87.6 Hypokalemia; I48.0 Paroxysmal atrial fibrillation; Z79.4 Long term (current) use of insulin; Z79.82 Long term (current) use of aspirin; Z79.899 Other long term (current) drug therapy; Z90.49 Acquired absence of other specified parts of digestive tract; Z98.890 Other specified postprocedural states
CPT/HCPCS: 0240U; 36415; 36416; 51701; 70450; 71045; 80048; 80053; 81003; 81015; 83605; 83880; 85025; 85610; 85730; 87040; 87077; 87086; 87149; 87186; 93005; 93010; 96365; 96366; 96367; J0696; J1160; J1815; J2185; J3370; J3475